=== PATIENT | male | born 1950 | race Caucasian/White ===

== ENCOUNTER 2021-11-30 07:39 | Outpatient (REF) | payer MEDICARE, BC, SELFPAY ==
--- NOTE | ~2021-11-30 | CT_ITS ---
EXAMINATION: CT ABDOMEN AND PELVIS WITHOUT CONTRAST CLINICAL INFORMATION: Renal calculus COMPARISON: None TECHNIQUE: Multidetector volumetric imaging was performed from the superior aspect of the liver through the pubic symphysis. Sagittal and coronal reformatted images were obtained on the technologist's workstation. This CT examination was performed using dose optimization techniques as appropriate, variously including the following: *Automated exposure control *Adjustment of mA and/or kV according to patient size (this includes techniques or standardized protocols for targeted exams where dose is matched to indication/reason for exam; i.e. extremities or head) *Use of iterative reconstruction technique DLP: 470 mGy-cm FINDINGS: Visualized lung bases demonstrate mild lingular and dependent atelectasis. A more nodular opacity within the right middle lobe is also suspected to represent atelectasis. The liver demonstrates normal size, contour and attenuation. There is a small approximately 1.5 cm cyst within the anterior right hepatic lobe. The gallbladder is normal in appearance. The pancreas, spleen and adrenal glands are unremarkable. Symmetrically sized kidneys. There are 4 small nonobstructing calculi of the right kidney, the largest is located within the lower pole and measures approximately 7 mm in size. This stone demonstrates Hounsfield units of approximately 760 and is located approximately 10 cm from the lateral skin surface. Also within the right kidney is a large exophytic cyst which measures approximately 10 cm. No renal calculi are present within the left kidney although there is an 8 mm calculus present within the left ureterovesical junction. There is however no left-sided hydronephrosis and no dilatation of the left ureter. The bladder is decompressed and therefore not accurately evaluated, however, there appears to be mild diffuse bladder wall thickening. There are coarse calcifications present within a normal-sized prostate gland. There is a 2.1 cm cystic structure abutting the posterior bladder wall which possibly represents bladder diverticulum. The stomach is decompressed. Normal caliber loops of small and large bowel. Moderate to severe colonic diverticulosis without CT evidence to suggest active diverticulitis. Normal caliber abdominal aorta which demonstrates mild atherosclerotic disease. No retroperitoneal lymphadenopathy. Moderate to severe degenerative changes of the spine. CT/CT abdomen pelvis wo con IMPRESSION: 1. Subcentimeter nonobstructing right renal calculi. No right-sided hydronephrosis. 2. 8 mm calculus present within the left ureterovesical junction. There is however no left-sided hydronephrosis. No other calculi are noted within the left kidney. 3. There is suspected mild diffuse bladder wall thickening and there is a possible approximately 2 cm diverticulum off the posterior bladder wall. Clinical correlation recommended. This may be further evaluated with dedicated bladder ultrasound. 4. Colonic diverticulosis. 5. Hepatic and right renal cysts. Fleischner guidelines were followed.
== END 2021-11-30 07:40 | disposition home or self-care (01) ==
LOC: HO.CT 07:39
PROVIDERS: PCP Internal Medicine; Visit Provider Physician Assistant
DX: N20.0 Calculus of kidney (principal)
CPT/HCPCS: 74176

== ENCOUNTER 2023-10-31 18:04 | Inpatient (IN) | payer MEDICARE, BC, SELFPAY ==
[2023-10-31] VITALS (9 sets, daily range): BP systolic 110–163; BP diastolic 59–95; PULSE 72–112; RESP 20–30; TEMP 36.8–39.3; O2SAT 88–97; BMI 27.4
--- NOTE | ~2023-10-31 | CT_ITS ---
EXAMINATION: CTA CHEST PE STUDY, CT ABDOMEN AND PELVIS CLINICAL INFORMATION: Shortness of breath. Hypoxia. Tachypnea. RLQ TTP, prior N/V/D COMPARISON: 11/30/2021 CT scan TECHNIQUE: Prior to contrast administration, noncontrast localization images were obtained. After the administration of 85 mL of Omnipaque nonionic IV contrast, contiguous thin slice helical images were obtained through the thorax. Following this the examination was continued through the abdomen and then pelvis. Reformatted MIP images in the coronal and sagittal planes as well as thin slice reformatted images of coronal and sagittal planes were obtained at the acquisition workstation. This CT examination was performed using dose optimization techniques as appropriate, variously including the following: *Automated exposure control *Adjustment of mA and/or kV according to patient size (this includes techniques or standardized protocols for targeted exams where dose is matched to indication/reason for exam; i.e. extremities or head) *Use of iterative reconstruction technique DLP: 858 mGy-cm. FINDINGS: CHEST: The bolus timing on this study was acceptable for visualization of the pulmonary arterial tree. There are no intraluminal pulmonary arterial filling defects present to suggest pulmonary embolism. Linear scarring or atelectasis at the right lung base. No abnormal pulmonary nodules or masses are appreciated. No significant hilar or mediastinal adenopathy. There is no evidence of pleural effusion or pneumothorax. The heart is normal in size. No evidence of ventricular septal bowing or right heart strain. Extensive vascular calcification in the coronary vessels. There is no pericardial effusion or pericardial thickening. ABDOMEN/PELVIS: Liver, Gallbladder and Biliary Tree: The liver is normal in size, shape, and attenuation. Incidental oval shaped 1.7 cm hepatic cyst in segment 4 the liver. No focal hepatic lesion or biliary ductal dilatation is present. The gallbladder is unremarkable with no evidence of radiopaque gallstones, gallbladder wall thickening, or obvious pericholecystic inflammatory changes. Pancreas: Unremarkable. Spleen: Unremarkable. Adrenal Glands: Unremarkable. Kidneys and Ureters: There is a delayed right-sided nephrogram phase with right-sided hydronephrosis and hydroureter extending up to a 0.6 cm calculi at the right ureteropelvic junction. Tiny nonobstructing right-sided and to lesser extent left-sided intrarenal calculi noted as well. Bilateral renal cortical cysts are seen with a dominant 12 cm right upper pole calculi. Bladder: Decompressed with diffuse bladder wall thickening. Cystitis would be difficult to exclude in this setting and correlation with urinalysis would be recommended. There is a small cystic structures seen along the posterior aspect of the bladder abutting the seminal vesicle more likely due to bladder diverticula although seminal vesicle/ejaculatory duct cyst cannot be excluded with this location. Gastrointestinal Tract: Extensive colonic diverticulosis more so in the sigmoid colon. No colonic wall thickening or pericolonic inflammatory change to suggest diverticulitis. Unremarkable appendix. Visualized small bowel also unremarkable Abdominal Wall: No significant hernia is appreciated. Lymphovascular Structures: Vascular calcification within the aorta iliac system Pelvic Viscera: Prostatic calcifications Osseous Structures: Multilevel degenerative changes in the spine and degenerative changes in both hips CT/CT abdomen pelvis w IV con IMPRESSION: 1. No evidence for pulmonary emboli. 2. Right-sided hydronephrosis and hydroureter extending up to a 0.6 cm calculi at the right ureteropelvic junction. There is a delayed right-sided nephrogram phase. 3. Bladder is decompressed with diffuse bladder wall thickening. Cystitis would be difficult to exclude in this setting and correlation with urinalysis would be recommended. 4. There is a small cystic structure seen along the posterior aspect of the bladder abutting the seminal vesicle more likely due to bladder diverticula although seminal vesicle/ejaculatory duct cyst cannot be excluded with this location. VTE: Negative.
--- NOTE | ~2023-10-31 | XR_ITS ---
EXAMINATION: XR CHEST CLINICAL INFORMATION: Hypoxia. COMPARISON: Chest 10/31/2023 TECHNIQUE: Frontal view of the chest was obtained. FINDINGS: The lungs are well-expanded and clear of acute Process. There is minimal linear atelectatic changes in the lingula and right lower lobe.. There is mild elevated right hemidiaphragm. Heart size and pulmonary vascularity is normal. There is moderate spondylosis mid and lower dorsal spine. No aggressive lytic or sclerotic process. XR/XR chest 1V IMPRESSION: 1. No acute cardiopulmonary process seen. Minimal atelectatic changes in the lingula and right middle lobe. 2. Moderate spondylosis mid and lower dorsal spine.
--- NOTE | ~2023-10-31 | FL_ITS ---
EXAMINATION: XR FLUOROSCOPY WITH IMAGES CLINICAL INFORMATION: Cystoscopy, retrograde, stent placement right COMPARISON: None available. TECHNIQUE: Fluoroscopy Supervised By: Dr. Molina. Fluoroscopy Time: 13.8. Cumulative Dose: 5.06 mGy. DAP: Not reported on this machine. Images: 2. FINDINGS: Technical assistance and equipment were provided by the Department of Radiology during intraoperative fluoroscopy. A total of 2 limited fluoroscopic spot images are submitted for archival purposes. A radiologist was not present during the procedure. The images are available for review on PACS. FL/FL guidance in OR IMPRESSION: Technical assistance and equipment provided by the Department of Radiology during procedural fluoroscopy, as above. Please see procedure report for further details.
--- NOTE | ~2023-10-31 | XR_ITS ---
EXAMINATION: XR CHEST 2 VIEW CLINICAL INFORMATION: Cough, shortness of breath COMPARISON: None TECHNIQUE: PA and lateral views of the chest obtained. FINDINGS: Minimal linear atelectasis or scar is evident in the lingula. The right lung is clear. There are no pleural effusions. The cardiomediastinal silhouette is not enlarged. Spondylotic changes are noted in the dorsal spine. The aorta is uncoiled. There are no pleural effusions. The cardiomediastinal silhouette is normal. XR/XR chest 2V IMPRESSION: Minimal linear atelectasis or scar at the left lung base.
--- NOTE | 2023-10-31 18:09 | ED.GENADULT ---
HPI - General Adult General Chief complaint: Upper Respiratory Symptoms Stated complaint: fever 102 /sob/ 5 days Time Seen by Provider: 10/31/23 18:37 Source: patient Mode of arrival: ambulatory Limitations: no limitations History of Present Illness HPI narrative: Patient is a 73-year-old male who presents emergency department for evaluation. He reports 5 days ago, the evening of 10/26/2022 he began experiencing mid lower abdominal pain below the umbilicus that started radiating to the bilateral lower sides with associated nausea vomiting and diarrhea. Reported fever. These symptoms persisted for about 2 days; 10/27-10/28 and were severe. The symptoms resolved. However over the weekend 10/29-10/30 he felt significantly fatigued, and had a hard time getting out of bed. He reports pending no more than 1 hour out of bed each day. Today upon awakening he noticed feeling short of breath. Reports T-max 102.1 degrees at approximately 17:30 tonight, did not take Tylenol at home. He states that the nausea vomiting and abdominal pain have resolved. He denies any headache, dizziness, lightheadedness, neck pain, chest pain, numbness or tingling of the extremities, genitourinary symptoms. He does report a history of UTIs in the past, believes he was last treated for UTI in September 2023. Related Data Home Medications Medication Instructions Recorded Confirmed amlodipine 5 mg tablet 5 mg PO DAILY 10/31/23 10/31/23 atorvastatin 80 mg tablet 80 mg PO BEDTIME 10/31/23 10/31/23 cholecalciferol (vitamin D3) 50 50 mcg PO DAILY 10/31/23 10/31/23 mcg (2,000 unit) tablet coenzyme Q10 300 mg capsule (Co 300 mg PO DAILY 10/31/23 10/31/23 Q-10) magnesium oxide 400 mg PO BEDTIME 10/31/23 10/31/23 potassium citrate 5 mEq (540 mg) 5 meq PO TID 10/31/23 10/31/23 tablet,extended release tamsulosin 0.4 mg capsule 0.4 mg PO BEDTIME 10/31/23 10/31/23 Allergies Allergy/AdvReac Type Severity Reaction Status Date / Time No Known Allergies Allergy Verified 10/31/23 18:11 Review of Systems Review of Systems: Yes all other systems are reviewed and are negative PMFSH Past Medical History Attestation statement: The following information was validated with the patient. Source: old records reviewed Onset Date is defined in the Problem List Problems that require an onset date and time if occurred within 24 hrs of arrival to the ED Aortic Dissection and Rupture; Neurologic impairment; Cardiopulmonary Arrest; Endotracheal Intubation; Insertion or Replacement of Mechanical Circulatory Assist Device Social History Social History Advance Directives: No Advance Directives Information Provided: No Physical Exam ED Vital Signs: Vital Signs - 24 hr 10/31/23 18:06 10/31/23 19:41 10/31/23 20:05 Temperature 99.4 F 102.7 F H 100.4 F Pulse Rate 112 H 92 94 Respiratory Rate 22 H 30 H 20 Blood Pressure 163/87 H 163/85 H 160/95 H Pulse Oximetry 88 L 97 96 Oxygen Delivery Method Room Air Nasal Cannula Nasal Cannula Oxygen Flow Rate 2 2 10/31/23 20:57 10/31/23 21:11 10/31/23 21:13 Temperature 98.3 F 98.6 F 98.6 F Pulse Rate 80 72 Respiratory Rate 20 20 Blood Pressure 127/67 113/59 L Pulse Oximetry 94 94 Oxygen Delivery Method Nasal Cannula Nasal Cannula Oxygen Flow Rate 2 2 10/31/23 22:01 10/31/23 22:42 10/31/23 23:13 Temperature 98.6 F 98.2 F 98.2 F Pulse Rate 72 72 78 Respiratory Rate 20 20 20 Blood Pressure 110/68 124/74 121/76 Pulse Oximetry 95 95 94 Oxygen Delivery Method Nasal Cannula Room Air Nasal Cannula Oxygen Flow Rate 2 2 BMI result Body Mass Index 27.4 Appearance: Alert.?Oriented to person, place and time. No acute distress.?Normal affect. Eyes: Pupils equal, round and reactive to light.? ENT: Pharynx normal.?? Neck: Normal inspection.? Neck supple.?? CVS: Heart sounds normal. Normal heart rate and rhythm.? Pulses normal.?? Respiratory: Increased work of breathing, pausing for breath every few words but is able to speak full sentences. Hypoxic and tachypneic. Lung sounds clear to auscultation bilaterally?? Abdomen: Rounded, semifirm, right lower quadrant tenderness to palpation. No CVA tenderness. Normoactive bowel sounds. No pulsatile mass.?? Skin: Skin warm and dry.? Normal skin color.? Extremities: No lower extremity edema.? No calf ttp? Neuro: Moves all extremities spontaneously. Sensation intact bilaterally. CN II-XII intact. No focal neuro deficits. Ambulates with normal steady gait. Course Course Course Narrative: RME performed by Lanie Anderson PA-C. Patient is a 73 year old assigned male at presenting to the emergency department with a cough, nausea, vomiting, and weakness. Detailed physical exam and review of systems are deferred to the asbestos cloth inspector. Labs, imaging, and swabs ordered. Patient placed back in the waiting room pending room availability and results. Reevaluation(s) Reevaluation #1: CBC reveals a leukocytosis of 12.2 with left shift, very mild normocytic anemia does not meet transfusion criteria. mild hyponatremia with sodium of 132, NEHEMIAH with BUN 21 creatinine 1.63. BNP within normal range not consistent with CHF. High sensitive troponin within normal range, EKG without acute ischemic findings, no chest pain, unlikely ACS. lactic acid within normal range, no severe sepsis. CTA chest and CT AP pending Reevaluation #2: CTA negative for pulmonary embolism. Right hydronephrosis with hydroureter with 0.6 cm calculi at the right UPJ, diffuse bladder wall thickening, urinalysis reveals microscopic hematuria 2+ leukocyte esterase and greater than 50 WBC but no urine bacteria, however with wall thickening on CT concern for cystitis. he reports that he continues to feel short of breath, maintaining O2 saturation at 93% on 2 L via nasal cannula, Spoke with hospitalist, Dr. Goodrich for admission to medicine service. I consulted with Urology, Dr. Velasquez, who agrees to consult on patient case Time: 21:22 Medications Administered Discontinued Medications Generic Name Dose Route Start Last Admin Trade Name Freq PRN Reason Stop Dose Admin Acetaminophen 975 mg 10/31/23 18:53 10/31/23 19:31 Acetaminophen 325 Mg Tablet PO 10/31/23 18:54 975 mg ONCE ONE Administration Sodium Chloride 1,000 mls @ 999 mls/hr 10/31/23 19:00 10/31/23 21:00 Ns IV 10/31/23 20:00 Infused .Q1H1M JONATHAN Infusion Piperacillin Sod/Tazobactam 50 mls @ 100 mls/hr 10/31/23 19:23 10/31/23 21:14 Sod 3.375 gm/ Sodium Chloride IV 10/31/23 19:52 Infused ONCE ONE Infusion Iohexol 100 ml 10/31/23 20:02 10/31/23 20:02 Iohexol 350 Mg/Ml 100 Ml Infus..Btl IV 10/31/23 20:03 85 ml ONCE ONE Administration Tamsulosin HCl 0.4 mg 10/31/23 22:03 10/31/23 22:37 Tamsulosin Hcl 0.4 Mg Capsule PO 10/31/23 22:04 0.4 mg ONCE ONE Administration Medical Decision Making Medical Decision Making [facility] Narrative: 18:40 I assumed care of patient at this time. Patient is a 73-year-old male with past medical history of hypertension, hyperlipidemia, BPH presents emergency department for evaluation of fatigue with shortness of breath as per HPI, with recent gastrointestinal symptoms. During triage she was noted to be hypoxic on room air with O2 saturation 88% and mildly tachypneic. He denies any recent URI symptoms, history of chronic cough or shortness of breath. O2 improved to 96% on 2 L via nasal cannula. He is also noted to be tachycardic. Concern at this time for infection sepsis alert was called. Will obtain CBC to evaluate for leukocytosis/ anemia, CMP and lipase to evaluate for abnormal electrolytes /abnormal renal function/ abnormal hepatic/biliary function, EKG and troponin to evaluate for ischemia/ACS, viral testing, CT angio chest PE protocol, in addition to CT abdomen and pelvis given right lower quadrant tenderness, and Urinalysis. Differential Diagnosis Differential Diagnoses: The differential diagnosis associated with the presentation includes (Viral illness, pneumonia, pulmonary embolism, ACS, gastritis, appendicitis, diverticulitis, obstruction, pyelonephritis, hydronephrosis, ureteral calculi, urinary tract infection) Admission/Observation Consideration of admission/observation: Escalation of care including admission/observation considered (See narrative above and course narrative for further detail) Lab Data [facility] Lab Attestation statement: I reviewed the patient's lab results. (See course narrative for further detail) 10/31/23 19:09 10/31/23 19:09 Labs: Lab Results 10/31/23 10/31/23 10/31/23 Range/Units 19:02 19:09 20:33 WBC 12.2 H (4.8-10.8) X10*3/uL RBC 4.43 L (4.60-5.80) X10*6/uL Hgb 13.9 L (14.0-18.0) g/dl Hct 40.3 L (42.0-52.0) % MCV 91.0 (80.0-98.0) fL MCH 31.4 (27.0-33.0) pg MCHC 34.5 (31.0-36.0) g/dl RDW 16.1 H (11.0-16.0) % Plt Count 223 (160-400) X10*3/uL MPV 9.1 L (9.4-12.4) fL Immature Gran % (Auto) 0.3 (0.0-0.4) % Neut % (Auto) 85.7 H (45-73) % Lymph % (Auto) 4.3 L (20-40) % Swain % (Auto) 9.5 (2-11) % Eos % (Auto) 0.0 (0-4) % Baso % (Auto) 0.2 (0-2) % Lymph # (Auto) 0.5 L (1.2-4.9) X10*3/uL Swain # (Auto) 1.2 (0.1-1.2) X10*3/uL Eos # (Auto) 0.0 (0.0-0.4) X10*3/uL Baso # (Auto) 0.0 (0.0-0.2) X10*3/uL Abs Immat Gran (auto) 0.04 H (0.00-0.03) X10*3/uL Absolute Neuts (auto) 10.4 H (2.0-8.3) x10*3/uL Absolute Nucleated RBC 0.000 (0.0-0.012) X10*3/uL Nucleated RBC % (auto) 0.0 (0.0-0.2) /100WBC Sodium 132 L (135-145) mmol/L Potassium 4.4 (3.3-5.1) mmol/L Chloride 98 (96-108) mmol/L Carbon Dioxide 25 (22-29) mmol/L Anion Gap 13 (12-20) BUN 21 H (9-16) mg/dL Creatinine 1.63 H (0.5-1.4) mg/dL Estim Creat Clear Calc 37.8 Estimated GFR 41 Random Glucose 137 H (60-115) mg/dL Lactic Acid 1.4 (0.5-2.0) mmol/L Calcium 9.2 (8.4-10.2) mg/dL Magnesium 1.9 (1.6-2.6) mg/dL Total Bilirubin 0.9 (0.0-1.0) mg/dL AST 26 (5-37) U/L ALT 18 (0-40) U/L Alkaline Phosphatase 65 (39-117) U/L Total Creatine Kinase 108 (38-174) U/L Troponin I High Sens 5.4 (<3.5-35.0) ng/L B-Natriuretic Peptide 29 (<100) pg/mL Total Protein 7.6 (6.5-8.0) g/dL Albumin 3.7 (3.5-5.0) g/dL Urine Color Dark Yellow Urine Appearance Cloudy Urine pH 5.5 (5.0-9.0) Ur Specific Morton >= 1.030 H (1.005-1.025) Urine Protein 300 (3+) H (Neg-Trace) mg/dL Urine Glucose (UA) Negative (Negative) mg/dL Urine Ketones Trace (Negative) mg/dL Urine Blood Moderate (2+) H (Negative) Urine Nitrite Negative (Negative) Ur Leukocyte Esterase Moderate (2+) H (Negative) Urine RBC 11-20 H (0-2) /HPF Urine WBC >50 H (0-5) /HPF Ur Squamous Epith Cells 0-2 (0-2) /HPF Urine Bacteria None Seen (None Seen) Hyaline Casts 3-5 (0-2) /LPF Influenza Type A (PCR) NEGATIVE (Negative) Influenza Type B (PCR) NEGATIVE (Negative) RSV RNA Qual (PCR) NEGATIVE (Negative) SARS-CoV-2 RNA (RT-PCR) NEGATIVE (Negative) Independent Interpretation I performed an independent interpretation of an: EKG and Plain X-Ray (I person turbid x-ray and agree with radiologist impression.) Interpretation: Rate: 107 Rhythm:? sinus tachycardia Normal P waves.? Normal NICK.?? Normal QRS complex.?? ST T wave :?? no ST elevation, no ST depression [id number] The study has been interpreted contemporaneously by me. Radiology Impression Discussion of test interpretation with radiology: I have reviewed the radiologist's reading. Radiologist Impression: XR/XR chest 2V IMPRESSION: Minimal linear atelectasis or scar at the left lung base. CT/CT angio chest PE protocol IMPRESSION: 1. No evidence for pulmonary emboli. 2. Right-sided hydronephrosis and hydroureter extending up to a 0.6 cm calculi at the right ureteropelvic junction. There is a delayed right-sided nephrogram phase. 3. Bladder is decompressed with diffuse bladder wall thickening. Cystitis would be difficult to exclude in this setting and correlation with urinalysis would be recommended. 4. There is a small cystic structure seen along the posterior aspect of the bladder abutting the seminal vesicle more likely due to bladder diverticula although seminal vesicle/ejaculatory duct cyst cannot be excluded with this location. Independent Historian Clinical information obtained from an independent historian. History obtained from or confirmed by: Spouse (Present who confirms history) Discharge Plan Discharge Clinical Impression: Hydronephrosis with ureteral calculus, NEHEMIAH (acute kidney injury), Acute hypoxemic respiratory failure, UTI (urinary tract infection), Sepsis Patient Disposition: Admitted As Inpatient
--- NOTE | 2023-10-31 18:10 | ECG_ITS ---
Test Reason : SOB Blood Pressure : / mmHG Vent. Rate : 107 BPM Atrial Rate : 107 BPM P-R Int : 146 ms QRS Dur : 084 ms QT Int : 314 ms P-R-T Axes : 043 -69 059 degrees QTc Int : 419 ms Sinus tachycardia Left axis deviation Abnormal ECG No previous ECGs available Referred By: Lanie Anderson Electronically Signed By:DAVID PATEL MD
--- NOTE | 2023-10-31 19:12 | PC.NURSE ---
20g IV Access established in left AC. Labs drawn and sent for analysis. Awaiting results. 2nd blood culture being drawn by Richelle PCT at this time. Placed on monitoring specialist at this time. Sepsis protocol. This RN assuming care of this patient. NAGI Mariano aware.
[2023-10-31 19:15] LABS: Basophils Percent Auto 0.2 % (0-2); Hematocrit 40.3 % (42.0-52.0); Hemoglobin 13.9 g/dl (14.0-18.0); Imm Gran Abs Auto 0.04 X10*3/uL (0.00-0.03); Imm Gran Pct Auto 0.3 % (0.0-0.4); Lymphocytes Absolute Auto 0.5 X10*3/uL (1.2-4.9); Lymphocytes Percent Auto 4.3 % (20-40); MANUAL DIFF FLAG NO; Mean Corpuscular HGB Conc 34.5 g/dl (31.0-36.0); Mean Corpuscular Hemoglobin 31.4 pg (27.0-33.0); Mean Platelet Volume 9.1 fL (9.4-12.4); Monocytes Absolute Auto 1.2 X10*3/uL (0.1-1.2); Monocytes Percent Auto 9.5 % (2-11); Neutrophils Absolute Auto 10.4 x10*3/uL (2.0-8.3); Neutrophils Percent Auto 85.7 % (45-73); Platelet Count 223 X10*3/uL (160-400); Red Blood Count 4.43 X10*6/uL (4.60-5.80); Red Cell Distribution Width 16.1 % (11.0-16.0); White Blood Count 12.2 X10*3/uL (4.8-10.8)
[2023-10-31 19:27] LABS: Lactic Acid 1.4 mmol/L (0.5-2.0)
[2023-10-31] MEDS: Acetaminophen 325 MG TABLET 975 MG PO (19:31)
[2023-10-31 19:32] LABS: Alanine Aminotransferase 18 U/L (0-40); Albumin Level 3.7 g/dL (3.5-5.0); Alkaline Phosphatase 65 U/L (39-117); Anion Gap 13 (12-20); Aspartate Amino Transferase 26 U/L (5-37); Bilirubin Total 0.9 mg/dL (0.0-1.0); Blood Urea Nitrogen 21 mg/dL (9-16); Calcium 9.2 mg/dL (8.4-10.2); Carbon Dioxide 25 mmol/L (22-29); Chloride 98 mmol/L (96-108); Creatinine Clr Calc Pharmacy 37.8; Estimated Glomerular Filt Rate 41; Glucose Random 137 mg/dL (60-115); Magnesium 1.9 mg/dL (1.6-2.6); Potassium 4.4 mmol/L (3.3-5.1); Sodium 132 mmol/L (135-145); Total Protein 7.6 g/dL (6.5-8.0)
[2023-10-31 19:35] LABS: B Type Natriuretic Peptide 29 pg/mL (<100)
[2023-10-31] MEDS: Piperacillin Sodium/Tazobactam 3.375 GM in 0.9 % Sodium Chloride 50 ML IV (19:36)
[2023-10-31] MEDS: 0.9 % Sodium Chloride 1,000 ML 999 ML IV (19:37)
[2023-10-31 19:39] LABS: Troponin-I High Sensitivity 5.4 ng/L (<3.5-35.0)
[2023-10-31 19:51] LABS: Influenza A PCR NEGATIVE (Negative); Influenza B PCR NEGATIVE (Negative); Resp Syncy Virus RNA Qual PCR NEGATIVE (Negative); SARS COV2 PCR INHOUSE NEGATIVE (Negative)
[2023-10-31] MEDS: iohexoL 350 MG/ML 100 ML INFUS..BTL IV (20:02)
[2023-10-31 20:40] LABS: Appearance Urine Cloudy; Color Urine Dark Yellow; Glucose Urine UA Negative (Negative); Leukocyte Esterase Urine Moderate (2+) (Negative); Nitrite Urine Negative (Negative); PH 5.5 (5.0-9.0); Specific Gravity - Urine >= 1.030 (1.005-1.025); UMIC TRIGGER UACC YES; Urine Blood Moderate (2+) (Negative); Urine Ketones Trace mg/dL (Negative); Urine Protein 300 (3+) mg/dL (Neg-Trace)
[2023-10-31 20:52] LABS: Bacteria Urine None Seen (None Seen); Squamous Epithelial Cell Urine 0-2 /HPF (0-2); UACC Culture Trigger YES; WBC Urine >50 /HPF (0-5)
--- NOTE | 2023-10-31 22:03 | PHA.MEDREC ---
Pharmacy Consult ? Medication Reconciliation Pharmacy has completed the medication reconciliation. Patient's read list off patent phone. Patient made corrects to list for medications that have changed. Arminda Weeks, LouannD
--- NOTE | 2023-10-31 22:15 | PC.NURSE ---
assumed care of pt at 2100, pt sts he does not have any pain at this time. Does not feel short of breath, pt on 2L O2 via NC, SpO2 95%, afebrile, no complaints at this time. Calll boyce within reach
[2023-10-31] MEDS: Tamsulosin HCL 0.4 MG CAPSULE PO (22:37)
--- NOTE | 2023-10-31 23:25 | MHC.EDTECH ---
Addendum entered by Jessy Caicedo 10/31/23 23:29: vitals completed and call boyce within reach Original Note: This tech took over care of patient at 2300,hourly rounds and belonging list completed
--- NOTE | 2023-10-31 23:53 | P.HPHOSP_ITS ---
History of Present Illness Date of Service: 10/31/23 Attending physician on admission: Ilia Goodrich Chief Complaint: Abdominal pain, fevers and fatigue x 5 days Patient is a 73 year old pleasant white male with past medical history of recurrent UTI's, nephrolithiasis, hypertension, hyperlipidemia and BPH who presents to the emergency room accompanied by his reporting ongoing infra- umbilical and right flank pain. He started feeling unwell about 4 to 5 days ago with recurrent fevers with the highest recorded temperature being 102.5 F. He also had several episodes of non-bloody diarrhea with associated nausea and vomiting that lasted for 2 days and have now resolved. He has however continued to have intermittent febrile episodes and has now became generally weak to a point where he has been spending most of his day in bed. Today morning, he noticed that he had difficulty breathing and this is what prompted him to seek care. He denies any associated headaches, dizziness, chest pain, dysuria, hematuria or urgency. Initial work up done in the emergency room included a CT angiogram of the chest that did not show any acute abnormality while a CT scan of the abdomen and pelvis showed right sided hydroureteronephrosis due to a 0.6 cm obstructing calculi at the right ureteropelvic junction with associated cystitis. Blood work done was significant for a leukocytosis of 12.2 k/mm3, mild hyponatremia (132) and acuter renal failure with a serum creatinine of 1.63 mg/dL (not sure about his baseline). He received IV Zosyn and oral Flomax following which admission was requested. Review of Systems 2 Review of Systems: Yes all other systems are reviewed and are negative [facility] Functional capacity: independent ambulation Pertinent family history: Reviewed with patient and not pertinent to current admission. Social History Advance Directives: No Advance Directives Information Provided: No Meds Allergies Allergy/AdvReac Type Severity Reaction Status Date / Time No Known Allergies Allergy Verified 10/31/23 18:11 Home Medications Medication Instructions Recorded Confirmed Last Taken Type amlodipine 5 mg tablet 5 mg PO DAILY 10/31/23 10/31/23 10/31/22 History atorvastatin 80 mg tablet 80 mg PO BEDTIME 10/31/23 10/31/23 10/30/22 History cholecalciferol (vitamin D3) 50 50 mcg PO DAILY 01/08/24 01/08/24 01/08/23 History mcg (2,000 unit) tablet coenzyme Q10 300 mg capsule (Co 300 mg PO DAILY 10/31/23 10/31/23 10/31/22 History Q-10) magnesium oxide 400 mg PO BEDTIME 10/31/23 10/31/23 10/30/22 History potassium citrate 5 mEq (540 mg) 5 meq PO TID 10/31/23 10/31/23 10/31/22 History tablet,extended release tamsulosin 0.4 mg capsule 0.4 mg PO BEDTIME 10/31/23 10/31/23 10/30/22 History Physical Exam 2 Vital Signs and Narrative: Vital Signs: Last Vital Signs Temp 98.2 F 10/31/23 23:13 Pulse 78 10/31/23 23:13 Resp 20 10/31/23 23:13 BP 121/76 10/31/23 23:13 Pulse Ox 94 10/31/23 23:13 O2 Del Method Nasal Cannula 10/31/23 23:13 O2 Flow Rate 2 10/31/23 23:13 BMI result Body Mass Index 27.4 General: Well nourished. Awake, alert and oriented x 4. No apparent distress Eyes: No pallor or jaundice. PERRLA, EOMI HENT: Moist oral mucus membranes. No oropharyngeal lesions. Neck: Supple. No cervical adenopathy. No JVD Cardiovascular: Regular rate and rhythm. Normal heart sounds. No murmurs, rubs or gallops. No JVD. No peripheral edema. Respiratory: Normal respiratory effort with no accessory muscle use. CTAB. Gastrointestinal: Abdomen is soft, non-tender, non-distended. NABS. No hepatosplenomegaly Genitourinary system: Positive right CVA tenderness Extremities: No edema. No calf tenderness. Good peripheral pulses Skin: Warm/Dry. No rashes. No mottling. Capillary refill is < 2 seconds Neurological: AAOx4. Intact speech & cognition. Normal gait & balance. CN II - XII grossly intact but not individually tested. No motor or sensory deficits Hematologic: No bleeding. No ecchymosis. No swollen or tender lymph nodes. Psychiatric: Cooperative. Appropriate mood and affect. Results Labs 10/31/23 19:09 10/31/23 19:09 Labs: Laboratory Results - last 24 hr 10/31/23 10/31/23 10/31/23 19:02 19:09 20:33 MCV 91.0 MCH 31.4 MCHC 34.5 RDW 16.1 H Plt Count 223 MPV 9.1 L Immature Gran % (Auto) 0.3 Neut % (Auto) 85.7 H Lymph % (Auto) 4.3 L [place] % (Auto) 9.5 Eos % (Auto) 0.0 Baso % (Auto) 0.2 Lymph # (Auto) 0.5 L [place] # (Auto) 1.2 Eos # (Auto) 0.0 Baso # (Auto) 0.0 Abs Immat Gran (auto) 0.04 H Absolute Neuts (auto) 10.4 H Absolute Nucleated RBC 0.000 Nucleated RBC % (auto) 0.0 Anion Gap 13 Estim Creat Clear Calc 37.8 Estimated GFR 41 Random Glucose 137 H Lactic Acid 1.4 Calcium 9.2 Magnesium 1.9 Total Bilirubin 0.9 AST 26 ALT 18 Alkaline Phosphatase 65 Total Creatine Kinase 108 B-Natriuretic Peptide 29 Total Protein 7.6 Albumin 3.7 Urine Color Dark Yellow Urine Appearance Cloudy Urine pH 5.5 Ur Specific [place] >= 1.030 H Urine Protein 300 (3+) H Urine Glucose (UA) Negative Urine Ketones Trace Urine Blood Moderate (2+) H Urine Nitrite Negative Ur Leukocyte Esterase Moderate (2+) H Urine RBC 11-20 H Urine WBC >50 H Ur Squamous Epith Cells 0-2 Urine Bacteria None Seen Hyaline Casts 3-5 Influenza Type A (PCR) NEGATIVE Influenza Type B (PCR) NEGATIVE RSV RNA Qual (PCR) NEGATIVE SARS-CoV-2 RNA (RT-PCR) NEGATIVE ECG ECG interpretation date: 11/01/23 ECG interpretation time: 00:46 Interpretation: Sinus tachycardia at 107 bpm. LAD. No acute ischemic changes Imaging Radiologist's Impressions: Impressions Chest X-Ray 10/31/23 18:21 IMPRESSION: Minimal linear atelectasis or scar at the left lung base. Abdomen/Pelvis CT 10/31/23 20:19 1. No evidence for pulmonary emboli. 2. Right-sided hydronephrosis and hydroureter extending up to a 0.6 cm calculi at the right ureteropelvic junction. There is a delayed right-sided nephrogram phase. 3. Bladder is decompressed with diffuse bladder wall thickening. Cystitis would be difficult to exclude in this setting and correlation with urinalysis would be recommended. 4. There is a small cystic structure seen along the posterior aspect of the bladder abutting the seminal vesicle more likely due to bladder diverticula although seminal vesicle/ejaculatory duct cyst cannot be excluded with this location. VTE: Negative. Assessment and Plan (1) Sepsis: Qualifiers: Acute renal failure type: unspecified Sepsis acute organ dysfunction status: with acute organ dysfunction Sepsis type: sepsis due to unspecified organism Severe sepsis acute organ dysfunction type: acute renal failure S evere sepsis shock status: without septic shock Qualified Code(s): A41.9 - Sepsis, unspecified organism; R65.20 - Severe sepsis without septic shock; N17.9 - Acute kidney failure, unspecified Status: Acute (2) Hydronephrosis with ureteral calculus: Status: Acute (3) UTI (urinary tract infection): Qualifiers: Hematuria presence: without hematuria Urinary tract infection type: a cute cystitis Qualified Code(s): N30.00 - Acute cystitis without hematuria Status: Acute (4) NEHEMIAH (acute kidney injury): Status: Acute (5) Hypoxemia: Status: Acute Plan Patient is a 73 year old pleasant white male with past medical history of recurrent UTI's, nephrolithiasis, hypertension, hyperlipidemia and BPH who is ehre with 1. Sepsis - due to UTI - not in shock and Lactic acid not elevated .dvt - admit for IV antibiotics (started on Ceftriaxone) - follow up on urine & blood cultures - He santiago normal lactic acid and BP so no need for IV fluid t this time. 2. Right sided hydronephrosis and hydroureter - secondary to an obstructing 0.6 cm stone at the right ureteropelvic junction. - will need stone expulsion or extraction given presence of UTI - consult Urology (Dr. Velasquez is aware) 3. Acute UTI / Cystitis - he has a h/o recurrent TI - treat with Zosyn 4. Acute renal failure - noted with slightly elevated Serum creatinine at 1.63 - am not sure about his baseline since he has not done any lab work - rehydrate and recheck in the morning 5. Hypertension - BP control is fair - resume Amlodipine 6. Hyperlipidemia - resume atorvastatin DVT: SC Lovenox CODE STATUS: Full code Admission for at least 2 midnights for management of UTI and Sepsis and further management of right obstructing ureteral calculi. Total time managing care of this patient today: 75 minutes. Quality Stroke Does the patient have a stroke diagnosis?: No VTE Prior VTE?: No VTE Risk Level:: Medical - moderate - high VTE Device Contraindication: N/A - Device Ordered VTE Drug Contraindication: N/A - Med Ordered
[2023-11-01] VITALS (22 sets, daily range): BP systolic 106–154; BP diastolic 34–91; PULSE 75–135; RESP 12–46; TEMP 36.6–40; O2SAT 91–97
--- NOTE | 2023-11-01 01:06 | MHC.EDTECH ---
Patient rang the call boyce and stated he was shaky,patient felt hot to the touch, patient has a rectal temp of 102.3 RN was made aware. Patient urinated 250MLS in urinal,patient had smears of stool, sydni-care giving and patient repositioned. Call boyce within reach.
[2023-11-01] MEDS: oxyCODONE HCl Immed Release 5 MG TABLET PO (01:11)
[2023-11-01] MEDS: 0.9 % Sodium Chloride Flush 3 ML SYRINGE IVFLUSH ×2 (01:11→10:26)
[2023-11-01] MEDS: Acetaminophen 325 MG TABLET 650 MG PO ×3 (01:12→13:15)
[2023-11-01] MEDS: Melatonin 3 MG TABLET 6 MG PO (01:12)
[2023-11-01] MEDS: Dextrose 5 % and 0.9 % NaCl 1,000 ML 125 ML IVCONT ×3 (01:12→19:36)
--- NOTE | 2023-11-01 01:16 | PC.NURSE ---
Pt calling nursing into room, states he is feeling unwell and has tremors. Rectal temp elevated 102.3 Pt medicated with Tylenol, Oxycodone for 5/10 and Melatonin to sleep. Pt incontinent of stool, provided sydni care, assisted into changing out of home clothes into hospital attire. Pt resting in bed at this time, continue to monitor.
--- NOTE | 2023-11-01 02:12 | MHC.EDTECH ---
Hourly rounds and vitals completed, patient's temp is 103.2 Rectally RN Dina made aware.
--- NOTE | 2023-11-01 02:13 | PC.NURSE ---
Addendum entered by Dina Morrison 11/01/23 02:15: Plan to cool patient with ice packs and recheck temp in 1 hour per hospitalist. Original Note: Repeat rectal temp remains elevated @ 103.2, recently medicated with Tylenol, hospitalist notified. Awaiting orders.
--- NOTE | 2023-11-01 03:19 | MHC.EDTECH ---
Addendum entered by Jessy Caicedo 11/01/23 03:34: @ 0230 ICE applied to patients groin and neck Original Note: Hourly rounds and vitals completed patient's temp is 102.3 rectally, RN aware, patient was giving a cup of ice water,call boyce in reach
[2023-11-01] MEDS: Piperacillin Sodium/Tazobactam 2.25 GM in 0.9 % Sodium Chloride 50 ML IV ×3 (03:28→21:36)
--- NOTE | 2023-11-01 04:09 | MHC.EDTECH ---
Ice packs removed,patient was cleaned linen was changed and sydni-care giving. Hourly rounds and vitals completed, rectal temp is 101.4 RN made aware, Patient was giving a can of nigel lashae. Call boyce in reach
[2023-11-01] MEDS: ondansetron HCL 4 MG/2 ML VIAL IVPUSH (04:27)
[2023-11-01] MEDS: Morphine Sulfate 4 MG/ML CARTRIDGE 2 MG IVPUSH (04:38)
--- NOTE | 2023-11-01 04:44 | PC.NURSE ---
Addendum entered by Dina Morrison 11/01/23 04:48: Pt reports relief of nausea, states pain has decreased to 2/10 after receiving Morphine. Original Note: Pt reports having a panic attack, wakes feeling unwell, tremerous, SOB, tachycardic @ 140 and tachypneic @ 40/min. Hospitalist notified and at bedside for eval. Pt medicated for pain, ice packs reapplied to head/neck/groin. Plan to move to main ED and apply cooling blanket.
--- NOTE | 2023-11-01 04:59 | PC.NURSE ---
Pt moved to the main ED into room 9, report given to [facility]. Plan for cooling blanket.
--- NOTE | 2023-11-01 05:12 | PC.NURSE ---
Rectal probe inserted to monitor temp, temp 104. Cooling blanket applied.
--- NOTE | 2023-11-01 05:27 | PC.NURSE ---
care assumed of patient at this time. pt to ED RM9 from [facility] [place]. pt placed on cooling blanket. T103.8 at this time. pt denies any pain/ nausea at this moment. will continue to monitor.
[2023-11-01 06:37] LABS: Basophils Percent Auto 0.1 % (0-2); Hematocrit 35.7 % (42.0-52.0); Imm Gran Pct Auto 0.7 % (0.0-0.4); Lymphocytes Absolute Auto 0.5 X10*3/uL (1.2-4.9); Lymphocytes Percent Auto 3.4 % (20-40); MANUAL DIFF FLAG SCAN; Mean Corpuscular HGB Conc 33.6 g/dl (31.0-36.0); Mean Corpuscular Hemoglobin 31.4 pg (27.0-33.0); Mean Corpuscular Volume 93.5 fL (80.0-98.0); Mean Platelet Volume 9.8 fL (9.4-12.4); Monocytes Absolute Auto 0.4 X10*3/uL (0.1-1.2); Monocytes Percent Auto 3.1 % (2-11); Neutrophils Absolute Auto 12.9 x10*3/uL (2.0-8.3); Neutrophils Percent Auto 92.7 % (45-73); Platelet Count 212 X10*3/uL (160-400); Red Blood Count 3.82 X10*6/uL (4.60-5.80); Red Cell Distribution Width 16.2 % (11.0-16.0); SCAN SMEAR FLAG 1; White Blood Count 13.9 X10*3/uL (4.8-10.8)
[2023-11-01 06:43] LABS: Anion Gap 14 (12-20); Blood Urea Nitrogen 20 mg/dL (9-16); Calcium 8.4 mg/dL (8.4-10.2); Carbon Dioxide 24 mmol/L (22-29); Chloride 102 mmol/L (96-108); Creatinine Clr Calc Pharmacy 39.5; Estimated Glomerular Filt Rate 44; Glucose Random 144 mg/dL (60-115); Potassium 4.5 mmol/L (3.3-5.1); Sodium 135 mmol/L (135-145)
[2023-11-01 07:06] LABS: SLIDE REVIEW VERIFIED
[2023-11-01] MEDS: amLODIPine Besylate 5 MG TABLET PO (07:24)
[2023-11-01] MEDS: Docusate Sodium 100 MG CAPSULE PO ×2 (07:25→21:36)
[2023-11-01] MEDS: Cholecalciferol (Vitamin D3) 25 MCG TABLET 50 MCG PO (07:25)
--- NOTE | 2023-11-01 08:43 | PC.NURSE ---
Dr Walker at bedside at this time
--- NOTE | 2023-11-01 09:13 | PC.NURSE ---
Pt is a&o x4, reporting no pain, second point of access established. cooling blanket in place, pt using urinal at bedside and able to make needs known.
--- NOTE | 2023-11-01 09:42 | PC.NURSE ---
Cooling blanket removed as temp 99.1 at this time
--- NOTE | 2023-11-01 09:42 | PM.UROCN ---
History of Present Illness Consult details Consult date: 11/01/23 Narrative: CC: right proximal ureteric stone 73-year-old male Prior history of recurrent UTIs, nephrolithiasis and BPH Presented to emergency room with right flank pain severity 8/10, no relieving factors. Ongoing for 4-5 days. Intermittent fever. Highest temperature poor high 1-2.5 Denies dysuria, hematuria or urgency CT scan - Right-sided hydronephrosis and hydroureter extending up to a 0.6 cm calculi at the right ureteropelvic junction Laboratory showed creatinine 1.6 consistent with mild NEHEMIAH, WBC 13.9 differential not performed Urine with moderate blood, leukocytosis Culture pending Has been given broad-spectrum antibiotics Plan for cystoscopy, right retrograde, right stent placement Procedure discussed with patient and Review of Systems Constitutional: Constitutional: Reports as per HPI and Reports no additional constitutional complaints Cardiovascular: Cardiovascular: Reports as per HPI and Reports no additional cardiovascular complaints Respiratory: Respiratory: Reports as per HPI and Reports no additional respiratory complaints Gastrointestinal: Gastrointestinal: Reports as per HPI and Reports no additional gastrointestinal complaints Genitourinary: Genitourinary: Reports as per HPI Musculoskeletal: Musculoskeletal: Reports no additional musculoskeletal complaints and Reports as per HPI Neurologic: Reports system reviewed and no additional complaints, except as documented and Reports as per HPI [facility] Social History Social History Patient Tobacco Use Status: Tobacco use Unknown Advance Directives: No Advance Directives Information Provided: No Meds Allergies Allergy/AdvReac Type Severity Reaction Status Date / Time No Known Allergies Allergy Verified 10/31/23 18:11 Active Medications: Current Medications Acetaminophen (Acetaminophen 325 Mg Tablet) 650 mg PO Q6H PRN PRN Reason: Pain, Mild (Pain Scale 1-3) Last Admin: 11/01/23 07:24 Dose: 650 mg Al Hydroxide/Mg Hydroxide (Magnesium Hydrox/Alum Hydrox 30 Ml Oral.Susp) 30 ml PO Q4H PRN PRN Reason: Heartburn/Nausea Amlodipine Besylate (Amlodipine Besylate 5 Mg Tablet) 5 mg PO DAILY [facility]; Protocol Last Admin: 11/01/23 07:24 Dose: 5 mg Atorvastatin Calcium (Atorvastatin Calcium 80 Mg Tablet) 80 mg PO BEDTIME [facility] Docusate Sodium (Docusate Sodium 100 Mg Capsule) 100 mg PO BID [facility] Last Admin: 11/01/23 07:25 Dose: 100 mg Enoxaparin Sodium (Enoxaparin Sodium 40 Mg/0.4 Ml Syringe) 40 mg SUBCUT DAILY [facility] Dextrose/Sodium Chloride (D5ns) 1,000 mls @ 125 mls/hr IVCONT .Q8H [facility] Last Admin: 11/01/23 09:05 Dose: 125 mls/hr Piperacillin Sod/Tazobactam (Sod 2.25 gm/ Sodium Chloride) 50 mls @ 100 mls/hr IV Q6H [facility] Last Admin: 11/01/23 09:04 Dose: 100 mls/hr Magnesium Oxide (Magnesium Oxide 400 Mg Tablet) 400 mg PO BEDTIME [facility] Melatonin (Melatonin 3 Mg Tablet) 6 mg PO BEDTIME PRN PRN Reason: Insomnia Last Admin: 11/01/23 01:12 Dose: 6 mg Morphine Sulfate (Morphine Sulfate 4 Mg/Ml Cartridge) 2 mg IVPUSH Q6H PRN; Protocol PRN Reason: Pain, Severe (Pain Scale 7-10) Last Admin: 11/01/23 04:38 Dose: 2 mg Ondansetron HCl (Ondansetron Hcl 4 Mg/2 Ml Vial) 4 mg IVPUSH Q8H PRN PRN Reason: Nausea and Vomiting Last Admin: 11/01/23 04:27 Dose: 4 mg Oxycodone HCl (Oxycodone Hcl Immed Release 5 Mg Tablet) 5 mg PO Q6H PRN PRN Reason: Pain, Moderate(Pain Scale 4-6) Last Admin: 11/01/23 01:11 Dose: 5 mg Sodium Chloride (0.9 % Sodium Chloride Flush 3 Ml Syringe) 3 ml IVFLUSH QSHIFT [facility] Last Admin: 11/01/23 01:11 Dose: 3 ml Tamsulosin HCl (Tamsulosin Hcl 0.4 Mg Capsule) 0.4 mg PO BEDTIME [facility] Vitamin D (Cholecalciferol (Vitamin D3) 25 Mcg Tablet) 50 mcg PO DAILY [facility] Last Admin: 11/01/23 07:25 Dose: 50 mcg Home Medications Medication Instructions Recorded Confirmed Last Taken Type amlodipine 5 mg tablet 5 mg PO DAILY 10/31/23 10/31/23 10/31/22 History atorvastatin 80 mg tablet 80 mg PO BEDTIME 10/31/23 10/31/23 10/30/22 History cholecalciferol (vitamin D3) 50 50 mcg PO DAILY 10/31/23 10/31/23 10/31/22 History mcg (2,000 unit) tablet coenzyme Q10 300 mg capsule (Co 300 mg PO DAILY 10/31/23 10/31/23 10/31/22 History Q-10) magnesium oxide 400 mg PO BEDTIME 10/31/23 10/31/23 10/30/22 History potassium citrate 5 mEq (540 mg) 5 meq PO TID 10/31/23 10/31/23 10/31/22 History tablet,extended release tamsulosin 0.4 mg capsule 0.4 mg PO BEDTIME 10/31/23 10/31/23 10/30/22 History Physical Exam Vital Signs: Vital Signs: Last Vital Signs Temp 100.1 F 11/01/23 09:01 Pulse 80 11/01/23 09:01 Resp 16 11/01/23 09:01 BP 106/65 11/01/23 09:01 Pulse Ox 93 11/01/23 09:01 O2 Del Method Nasal Cannula 11/01/23 09:01 O2 Flow Rate 3 11/01/23 09:01 BMI result Body Mass Index 27.4 Const: General: cooperative, healthy appearing, comfortable and no acute distress Orientation/consciousness: patient oriented x3 HEENT: Face and sinus: Yes normal facial exam Mouth: moist mucous membranes Neck: Neck: Yes normal visual inspection, Yes full ROM and Yes trachea midline Chest: Chest palpation & inspection: normal inspection of the chest Resp: Effort & Inspection: normal respiratory effort, able to speak in complete sentences and no respiratory distress GI: Inspection: Yes normal to inspection Back/Spine/Pelvis: Cervical Spine: normal cervical lordosis Thoracic/Lumbar Spine: thoracic and lumbar spine normal to inspection Skin: General skin exam: no rashes or lesions noted Neuro: General: patient oriented x3, tone normal and moves all extremities Extrem: General: Yes normal to inspection and Yes capillary refill normal Results Labs 11/01/23 05:27 11/01/23 05:27 Labs: Abnormal lab results 10/31/23 10/31/23 11/01/23 Range/Units 19:09 20:33 05:27 WBC 12.2 H 13.9 H (4.8-10.8) X10*3/uL RBC 4.43 L 3.82 L (4.60-5.80) X10*6/uL Hgb 13.9 L 12.0 L (14.0-18.0) g/dl Hct 40.3 L 35.7 L (42.0-52.0) % RDW 16.1 H 16.2 H (11.0-16.0) % MPV 9.1 L (9.4-12.4) fL Immature Gran % (Auto) 0.7 H (0.0-0.4) % Neut % (Auto) 85.7 H 92.7 H (45-73) % Lymph % (Auto) 4.3 L 3.4 L (20-40) % Lymph # (Auto) 0.5 L 0.5 L (1.2-4.9) X10*3/uL Abs Immat Gran (auto) 0.04 H 0.10 H (0.00-0.03) X10*3/uL Absolute Neuts (auto) 10.4 H 12.9 H (2.0-8.3) x10*3/uL Sodium 132 L (135-145) mmol/L BUN 21 H 20 H (9-16) mg/dL Creatinine 1.63 H 1.56 H (0.5-1.4) mg/dL Random Glucose 137 H 144 H (60-115) mg/dL Ur Specific [place] >= 1.030 H (1.005-1.025) Urine Protein 300 (3+) H (Neg-Trace) mg/dL Urine Blood Moderate (2+) H (Negative) Ur Leukocyte Esterase Moderate (2+) H (Negative) Urine RBC 11-20 H (0-2) /HPF Urine WBC >50 H (0-5) /HPF Short CBC 10/31/23 11/01/23 Range/Units 19:09 05:27 WBC 12.2 H 13.9 H (4.8-10.8) X10*3/uL Hgb 13.9 L 12.0 L (14.0-18.0) g/dl Hct 40.3 L 35.7 L (42.0-52.0) % Plt Count 223 212 (160-400) X10*3/uL BMP 10/31/23 11/01/23 19:09 05:27 Sodium 132 L 135 Potassium 4.4 4.5 Chloride 98 102 Carbon Dioxide 25 24 BUN 21 H 20 H Creatinine 1.63 H 1.56 H Calcium 9.2 8.4 D Cardiac Enzymes 10/31/23 Range/Units 19:09 Total Creatine Kinase 108 (38-174) U/L Liver Function 10/31/23 Range/Units 19:09 Total Bilirubin 0.9 (0.0-1.0) mg/dL AST 26 (5-37) U/L ALT 18 (0-40) U/L Alkaline Phosphatase 65 (39-117) U/L Albumin 3.7 (3.5-5.0) g/dL Urine 10/31/23 Range/Units 20:33 Urine Color Dark Yellow Urine Appearance Cloudy Urine pH 5.5 (5.0-9.0) Ur Specific [place] >= 1.030 H (1.005-1.025) Urine Protein 300 (3+) H (Neg-Trace) mg/dL Urine Glucose (UA) Negative (Negative) mg/dL All other labs normal. Assessment and Plan (1) NEHEMIAH (acute kidney injury): Status: Acute (2) Hydronephrosis with ureteral calculus: Status: Acute Plan Risks, benefits and alternatives to therapy were discussed. These include but are not limited to infection, bleeding, damage to local organs and tissues, need for further interventions. Anesthetic risks regarding cardiac arrhythmia, blood clots, and potential mortality were discussed. The patient understands the typical recovery time and the outpatient nature of the procedure. After consideration of these risks the patient gives full informed consent and they wish to move ahead with the procedure. Cystoscopy, right retrograde, right stent placement Procedures Date of Service Date of Service: 11/01/23
--- NOTE | 2023-11-01 12:31 | MHC.CM.PN ---
Met with patient and sig other, Brianna, in regards to discharge planning. Patient lives with Brianna, ambulates independently and and had no services prior to coming to the hospital Patient and Brianna do not feel services will be necessary at d/c. PCP verified. Copy of HCP obtained from [facility]. IMM explained and signed. Brianna will transport patient home when medically stable. Continue to monitor for d/c needs.
--- NOTE | 2023-11-01 13:00 | PC.NURSE ---
Report given to short stay RN kermit.
--- NOTE | 2023-11-01 14:04 | P.PNIM_ITS ---
Subjective Subjective Date of Service: 11/01/23 Interval History: sepsis sec to uti Review of Systems fevers has dysuria Physical Exam 2 Vital Signs: Vital Signs: Last Vital Signs Temp 100.3 F 11/01/23 13:12 Pulse 84 11/01/23 13:12 Resp 24 H 11/01/23 13:12 BP 121/34 L 11/01/23 13:12 Pulse Ox 94 11/01/23 13:12 O2 Del Method Nasal Cannula 11/01/23 13:12 O2 Flow Rate 2 11/01/23 13:12 BMI result Body Mass Index 27.4 Appearance: Alert.? Oriented X3. cvs: rrr, [id number] . res: clear to auscultation ,no rhonchii or wheezing abd: no rebound or guarding ,nt, bs present. right cva tenderness ext pulses present , no cyanosis . neuro: axo3 , nonfocal. Objective Data Active Medications Acetaminophen (Acetaminophen 325 Mg Tablet) 650 mg PO Q6H PRN PRN Reason: Pain, Mild (Pain Scale 1-3) Last Admin: 11/01/23 13:15 Dose: 650 mg Documented By: LEÓN Al Hydroxide/Mg Hydroxide (Magnesium Hydrox/Alum Hydrox 30 Ml Oral.Susp) 30 ml PO Q4H PRN PRN Reason: Heartburn/Nausea Amlodipine Besylate (Amlodipine Besylate 5 Mg Tablet) 5 mg PO DAILY [facility]; Protocol Last Admin: 11/01/23 07:24 Dose: 5 mg Documented By: LEÓN Atorvastatin Calcium (Atorvastatin Calcium 80 Mg Tablet) 80 mg PO BEDTIME [facility] Docusate Sodium (Docusate Sodium 100 Mg Capsule) 100 mg PO BID [facility] Last Admin: 11/01/23 07:25 Dose: 100 mg Documented By: LEÓN Enoxaparin Sodium (Enoxaparin Sodium 40 Mg/0.4 Ml Syringe) 40 mg SUBCUT DAILY [facility] Last Admin: 11/01/23 11:16 Dose: Not Given Documented By: KAITLYN Non-Admin Reason: Physician Held Med Dextrose/Sodium Chloride (D5ns) 1,000 mls @ 125 mls/hr IVCONT .Q8H [facility] Last Admin: 11/01/23 09:05 Dose: 125 mls/hr Documented By: LEÓN Piperacillin Sod/Tazobactam (Sod 2.25 gm/ Sodium Chloride) 50 mls @ 100 mls/hr IV Q6H [facility] Last Infusion: 11/01/23 10:26 Dose: Infused Documented By: KAITLYN Magnesium Oxide (Magnesium Oxide 400 Mg Tablet) 400 mg PO BEDTIME [facility]ATH[facility] Melatonin (Melatonin 3 Mg Tablet) 6 mg PO BEDTIME PRN PRN Reason: Insomnia Last Admin: 11/01/23 01:12 Dose: 6 mg Documented By: AMANDA Morphine Sulfate (Morphine Sulfate 4 Mg/Ml Cartridge) 2 mg IVPUSH Q6H PRN; Protocol PRN Reason: Pain, Severe (Pain Scale 7-10) Last Admin: 11/01/23 04:38 Dose: 2 mg Documented By: AMANDA Ondansetron HCl (Ondansetron Hcl 4 Mg/2 Ml Vial) 4 mg IVPUSH Q8H PRN PRN Reason: Nausea and Vomiting Last Admin: 11/01/23 04:27 Dose: 4 mg Documented By: CLEMENT Oxycodone HCl (Oxycodone Hcl Immed Release 5 Mg Tablet) 5 mg PO Q6H PRN PRN Reason: Pain, Moderate(Pain Scale 4-6) Last Admin: 11/01/23 01:11 Dose: 5 mg Documented By: AMANDA Sodium Chloride (0.9 % Sodium Chloride Flush 3 Ml Syringe) [facility] Last Admin: 11/01/23 10:26 Dose: 3 ml Documented By: KAITLYN Tamsulosin HCl (Tamsulosin Hcl 0.4 Mg Capsule) 0.4 mg PO BEDTIME [facility] Vitamin D (Cholecalciferol (Vitamin D3) 25 Mcg Tablet) 50 mcg PO DAILY [facility] Last Admin: 11/01/23 07:25 Dose: 50 mcg Documented By: LEÓN Labs 11/01/23 05:27 11/01/23 05:27 Labs: Laboratory Results - last 24 hr 10/31/23 10/31/23 10/31/23 19:02 19:09 20:33 MCV 91.0 MCH 31.4 MCHC 34.5 RDW 16.1 H Plt Count 223 MPV 9.1 L Immature Gran % (Auto) 0.3 Neut % (Auto) 85.7 H Lymph % (Auto) 4.3 L [place] % (Auto) 9.5 Eos % (Auto) 0.0 Baso % (Auto) 0.2 Lymph # (Auto) 0.5 L [place] # (Auto) 1.2 Eos # (Auto) 0.0 Baso # (Auto) 0.0 Abs Immat Gran (auto) 0.04 H Absolute Neuts (auto) 10.4 H Absolute Nucleated RBC 0.000 Nucleated RBC % (auto) 0.0 Smear Tech's Comments Anion Gap 13 Estim Creat Clear Calc 37.8 Estimated GFR 41 Random Glucose 137 H Lactic Acid 1.4 Calcium 9.2 Magnesium 1.9 Total Bilirubin 0.9 AST 26 ALT 18 Alkaline Phosphatase 65 Total Creatine Kinase 108 B-Natriuretic Peptide 29 Total Protein 7.6 Albumin 3.7 Urine Color Dark Yellow Urine Appearance Cloudy Urine pH 5.5 Ur Specific [place] >= 1.030 H Urine Protein 300 (3+) H Urine Glucose (UA) Negative Urine Ketones Trace Urine Blood Moderate (2+) H Urine Nitrite Negative Ur Leukocyte Esterase Moderate (2+) H Urine RBC 11-20 H Urine WBC >50 H Ur Squamous Epith Cells 0-2 Urine Bacteria None Seen Hyaline Casts 3-5 Influenza Type A (PCR) NEGATIVE Influenza Type B (PCR) NEGATIVE RSV RNA Qual (PCR) NEGATIVE SARS-CoV-2 RNA (RT-PCR) NEGATIVE 11/01/23 05:27 MCV 93.5 MCH 31.4 MCHC 33.6 RDW 16.2 H Plt Count 212 MPV 9.8 Immature Gran % (Auto) 0.7 H Neut % (Auto) 92.7 H Lymph % (Auto) 3.4 L [place] % (Auto) 3.1 Eos % (Auto) 0.0 Baso % (Auto) 0.1 Lymph # (Auto) 0.5 L [place] # (Auto) 0.4 Eos # (Auto) 0.0 Baso # (Auto) 0.0 Abs Immat Gran (auto) 0.10 H Absolute Neuts (auto) 12.9 H Absolute Nucleated RBC 0.000 Nucleated RBC % (auto) 0.0 Smear Tech's Comments VERIFIED Anion Gap 14 Estim Creat Clear Calc 39.5 Estimated GFR 44 Random Glucose 144 H Lactic Acid Calcium 8.4 D Magnesium Total Bilirubin AST ALT Alkaline Phosphatase Total Creatine Kinase B-Natriuretic Peptide Total Protein Albumin Urine Color Urine Appearance Urine pH Ur Specific [place] Urine Protein Urine Glucose (UA) Urine Ketones Urine Blood Urine Nitrite Ur Leukocyte Esterase Urine RBC Urine WBC Ur Squamous Epith Cells Urine Bacteria Hyaline Casts Influenza Type A (PCR) Influenza Type B (PCR) RSV RNA Qual (PCR) SARS-CoV-2 RNA (RT-PCR) Microbiology Microbiology Results: Microbiology 10/31/23 20:52 Urine Culture - Preliminary Urine clean catch - Urine sorto top No growth to date. Assessment and Plan (1) Sepsis: Status: Acute (2) UTI (urinary tract infection): Status: Acute Plan 73 year old pleasant white male with past medical history of recurrent UTI's, nephrolithiasis, hypertension, hyperlipidemia and BPH who is ehre with Sepsis- due to UTI abd [id number] hydronephrosis and hydroureter extending up to a 0.6 cm calculi at the right ureteropelvic junction. There is a delayed right-sided nephrogram phase. Bladder is decompressed with diffuse bladder wall thickening. Cystitis would be difficult to exclude in this setting and correlation with urinalysis would be recommended. not in shock and Lactic acid not elevated blood cultures -gram neg bacteremia follow up on urine & blood cultures,treat with Zosyn Right sided hydronephrosis and hydroureter secondary to an obstructing 0.6 cm stone at the right ureteropelvic junction. will need stone expulsion or extraction given presence of UTI consult Urology (Dr. Velasquez is aware) Acute renal failure- noted with slightly elevated Serum creatinine at 1.63 ,baseline unclear rehydrate and recheck in the morning Hypertension- BP control is fair continue Amlodipine Hyperlipidemia-continue atorvastatin DVT: SC Lovenox ongoing hospitlisation need :sepsis ,bactermia with UTI and Sepsis and further management of right obstructing ureteral calculi,elida-need hydration and iv antibiotics as well as urology expert consultation. Quality Stroke Does the patient have a stroke diagnosis?: No VTE Prior VTE?: No VTE Risk Level:: Medical - moderate - high VTE Device Contraindication: N/A - Device Ordered VTE Drug Contraindication: N/A - Med Ordered
--- NOTE | 2023-11-01 15:00 | PC.NURSE ---
dr. garcia at bedside to assess patient 02 sats (90-94) 2L via NC. reviewed lung sounds, x-ray and ct results. report given to kecia huerta rn aware of 3 spots on preop record that need to be completed and signed.
--- NOTE | 2023-11-01 15:04 | HO.ANESPROP2 ---
[facility] Active Problems Active Problems: All Active Problems (Updated 11/01/23 @ 01:15 by Ilia Goodrich MD) Hypoxemia (Acute) Sepsis (Acute) UTI (urinary tract infection) (Acute) Acute hypoxemic respiratory failure (Acute) NEHEMIAH (acute kidney injury) (Acute) Hydronephrosis with ureteral calculus (Acute) Past Medical History Functional capacity: independent ambulation Family History Family history of problems with anesthesia: No Surgical History History of Problems with Anesthesia: No Social History Social History Patient Tobacco Use Status: Former Tobacco user Advance Directives Date on File: 11/01/23 service: No Meds Allergies Allergy/AdvReac Type Severity Reaction Status Date / Time No Known Allergies Allergy Verified 10/31/23 18:11 Active Medications: Current Medications Acetaminophen (Acetaminophen 325 Mg Tablet) 650 mg PO Q6H PRN PRN Reason: Pain, Mild (Pain Scale 1-3) Last Admin: 11/01/23 13:15 Dose: 650 mg Al Hydroxide/Mg Hydroxide (Magnesium Hydrox/Alum Hydrox 30 Ml Oral.Susp) 30 ml PO Q4H PRN PRN Reason: Heartburn/Nausea Amlodipine Besylate (Amlodipine Besylate 5 Mg Tablet) 5 mg PO DAILY [facility]; Protocol Last Admin: 11/01/23 07:24 Dose: 5 mg Atorvastatin Calcium (Atorvastatin Calcium 80 Mg Tablet) 80 mg PO BEDTIME [facility] Docusate Sodium (Docusate Sodium 100 Mg Capsule) 100 mg PO BID [facility] Last Admin: 11/01/23 07:25 Dose: 100 mg Enoxaparin Sodium (Enoxaparin Sodium 40 Mg/0.4 Ml Syringe) 40 mg SUBCUT DAILY [facility] Last Admin: 11/01/23 11:16 Dose: Not Given Dextrose/Sodium Chloride (D5ns) 1,000 mls @ 125 mls/hr IVCONT .Q8H [facility] Last Admin: 11/01/23 09:05 Dose: 125 mls/hr Piperacillin Sod/Tazobactam (Sod 2.25 gm/ Sodium Chloride) 50 mls @ 100 mls/hr IV Q6H [facility] Last Infusion: 11/01/23 10:26 Dose: Infused Magnesium Oxide (Magnesium Oxide 400 Mg Tablet) 400 mg PO BEDTIME [facility]ONATHAN Melatonin (Melatonin 3 Mg Tablet) 6 mg PO BEDTIME PRN PRN Reason: Insomnia Last Admin: 11/01/23 01:12 Dose: 6 mg Morphine Sulfate (Morphine Sulfate 4 Mg/Ml Cartridge) 2 mg IVPUSH Q6H PRN; Protocol PRN Reason: Pain, Severe (Pain Scale 7-10) Last Admin: 11/01/23 04:38 Dose: 2 mg Ondansetron HCl (Ondansetron Hcl 4 Mg/2 Ml Vial) 4 mg IVPUSH Q8H PRN PRN Reason: Nausea and Vomiting Last Admin: 11/01/23 04:27 Dose: 4 mg Oxycodone HCl (Oxycodone Hcl Immed Release 5 Mg Tablet) 5 mg PO Q6H PRN PRN Reason: Pain, Moderate(Pain Scale 4-6) Last Admin: 11/01/23 01:11 Dose: 5 mg Sodium Chloride (0.9 % Sodium Chloride Flush 3 Ml Syringe) [facility] Last Admin: 11/01/23 10:26 Dose: 3 ml Tamsulosin HCl (Tamsulosin Hcl 0.4 Mg Capsule) 0.4 mg PO BEDTIME [facility] Vitamin D (Cholecalciferol (Vitamin D3) 25 Mcg Tablet) 50 mcg PO DAILY [facility] Last Admin: 11/01/23 07:25 Dose: 50 mcg Home Medications Medication Instructions Recorded Confirmed Last Taken Type amlodipine 5 mg tablet 5 mg PO DAILY 10/31/23 10/31/23 10/31/22 History atorvastatin 80 mg tablet 80 mg PO BEDTIME 10/31/23 10/31/23 10/30/22 History cholecalciferol (vitamin D3) 50 50 mcg PO DAILY 10/31/23 10/31/23 10/31/22 History mcg (2,000 unit) tablet coenzyme Q10 300 mg capsule (Co 300 mg PO DAILY 10/31/23 10/31/23 10/31/22 History Q-10) magnesium oxide 400 mg PO BEDTIME 10/31/23 10/31/23 10/30/22 History potassium citrate 5 mEq (540 mg) 5 meq PO TID 10/31/23 10/31/23 10/31/22 History tablet,extended release tamsulosin 0.4 mg capsule 0.4 mg PO BEDTIME 10/31/23 10/31/23 10/30/22 History Exam Height,Weight and Vital Signs: Height 5 ft 8 in Weight 81.647 kg Last Vital Signs Temp 99.7 F 11/01/23 14:23 Pulse 87 11/01/23 14:23 Resp 16 11/01/23 14:23 BP 112/63 11/01/23 14:23 Pulse Ox 94 11/01/23 14:23 O2 Del Method Nasal Cannula 11/01/23 14:23 O2 Flow Rate 2 11/01/23 14:23 Pertinent Lab Results Pertinent Lab Results: Laboratory Tests 10/31/23 10/31/23 10/31/23 19:02 19:09 20:33 WBC 12.2 H RBC 4.43 L Hgb 13.9 L Hct 40.3 L MCV 91.0 MCH 31.4 MCHC 34.5 RDW 16.1 H Plt Count 223 MPV 9.1 L Immature Gran % (Auto) 0.3 Neut % (Auto) 85.7 H Lymph % (Auto) 4.3 L [place] % (Auto) 9.5 Eos % (Auto) 0.0 Baso % (Auto) 0.2 Lymph # (Auto) 0.5 L [place] # (Auto) 1.2 Eos # (Auto) 0.0 Baso # (Auto) 0.0 Abs Immat Gran (auto) 0.04 H Absolute Neuts (auto) 10.4 H Absolute Nucleated RBC 0.000 Nucleated RBC % (auto) 0.0 Smear Tech's Comments Sodium 132 L Potassium 4.4 Chloride 98 Carbon Dioxide 25 Anion Gap 13 BUN 21 H Creatinine 1.63 H Estim Creat Clear Calc 37.8 Estimated GFR 41 Random Glucose 137 H Lactic Acid 1.4 Calcium 9.2 Magnesium 1.9 Total Bilirubin 0.9 AST 26 ALT 18 Alkaline Phosphatase 65 Total Creatine Kinase 108 Troponin I High Sens 5.4 B-Natriuretic Peptide 29 Total Protein 7.6 Albumin 3.7 Urine Color Dark Yellow Urine Appearance Cloudy Urine pH 5.5 Ur Specific [place] >= 1.030 H Urine Protein 300 (3+) H Urine Glucose (UA) Negative Urine Ketones Trace Urine Blood Moderate (2+) H Urine Nitrite Negative Ur Leukocyte Esterase Moderate (2+) H Urine RBC 11-20 H Urine WBC >50 H Ur Squamous Epith Cells 0-2 Urine Bacteria None Seen Hyaline Casts 3-5 Influenza Type A (PCR) NEGATIVE Influenza Type B (PCR) NEGATIVE RSV RNA Qual (PCR) NEGATIVE SARS-CoV-2 RNA (RT-PCR) NEGATIVE 11/01/23 05:27 WBC 13.9 H RBC 3.82 L Hgb 12.0 L Hct 35.7 L MCV 93.5 MCH 31.4 MCHC 33.6 RDW 16.2 H Plt Count 212 MPV 9.8 Immature Gran % (Auto) 0.7 H Neut % (Auto) 92.7 H Lymph % (Auto) 3.4 L [place] % (Auto) 3.1 Eos % (Auto) 0.0 Baso % (Auto) 0.1 Lymph # (Auto) 0.5 L [place] # (Auto) 0.4 Eos # (Auto) 0.0 Baso # (Auto) 0.0 Abs Immat Gran (auto) 0.10 H Absolute Neuts (auto) 12.9 H Absolute Nucleated RBC 0.000 Nucleated RBC % (auto) 0.0 Smear Tech's Comments VERIFIED Sodium 135 Potassium 4.5 Chloride 102 Carbon Dioxide 24 Anion Gap 14 BUN 20 H Creatinine 1.56 H Estim Creat Clear Calc 39.5 Estimated GFR 44 Random Glucose 144 H Lactic Acid Calcium 8.4 D Magnesium Total Bilirubin AST ALT Alkaline Phosphatase Total Creatine Kinase Troponin I High Sens B-Natriuretic Peptide Total Protein Albumin Urine Color Urine Appearance Urine pH Ur Specific [place] Urine Protein Urine Glucose (UA) Urine Ketones Urine Blood Urine Nitrite Ur Leukocyte Esterase Urine RBC Urine WBC Ur Squamous Epith Cells Urine Bacteria Hyaline Casts Influenza Type A (PCR) Influenza Type B (PCR) RSV RNA Qual (PCR) SARS-CoV-2 RNA (RT-PCR) Airway Mallampati Class: II TM Dist: >3cm Neck ROM: Full Heart: RRR Lungs: CTA Assessment and Plan Assessment Anesthesia Assessment: Anesthesia Plan Discussed Final Anesthetic Review Family History of Problems with Anesthesia: No History of Problems with Anesthesia: No NPO: Yes ASA Class: III and Emergency Final Preanesthetic Review: Meds/Allgs Chart Reviewed, Consent Obtained/Reviewed and Anes Risks/Benef Reviewed Patient Risk: Intermediate Procedure Risk: Low Anesthetic Plan Anesthetic Plan: GA Disposition: Standard PACU
--- NOTE | 2023-11-01 15:52 | HO.ANESPROP2 ---
[facility] [place] Active Problems Active Problems: All Active Problems (Updated 11/01/23 @ 01:15 by Ilia Goodrich MD) Hypoxemia (Acute) Sepsis (Acute) UTI (urinary tract infection) (Acute) Acute hypoxemic respiratory failure (Acute) NEHEMIAH (acute kidney injury) (Acute) Hydronephrosis with ureteral calculus (Acute) Past Medical History Functional capacity: independent ambulation Family History Family history of problems with anesthesia: No Surgical History History of Problems with Anesthesia: No Social History Social History Patient Tobacco Use Status: Former Tobacco user Advance Directives Date on File: 11/01/23 service: No Meds Allergies Allergy/AdvReac Type Severity Reaction Status Date / Time No Known Allergies Allergy Verified 10/31/23 18:11 Active Medications: Current Medications Acetaminophen (Acetaminophen 325 Mg Tablet) 650 mg PO Q6H PRN PRN Reason: Pain, Mild (Pain Scale 1-3) Last Admin: 11/01/23 13:15 Dose: 650 mg Al Hydroxide/Mg Hydroxide (Magnesium Hydrox/Alum Hydrox 30 Ml Oral.Susp) 30 ml PO Q4H PRN PRN Reason: Heartburn/Nausea Amlodipine Besylate (Amlodipine Besylate 5 Mg Tablet) 5 mg PO DAILY [facility]; Protocol Last Admin: 11/01/23 07:24 Dose: 5 mg Atorvastatin Calcium (Atorvastatin Calcium 80 Mg Tablet) 80 mg PO BEDTIME [facility] Docusate Sodium (Docusate Sodium 100 Mg Capsule) 100 mg PO BID [facility] Last Admin: 11/01/23 07:25 Dose: 100 mg Enoxaparin Sodium (Enoxaparin Sodium 40 Mg/0.4 Ml Syringe) 40 mg SUBCUT DAILY [facility] Last Admin: 11/01/23 11:16 Dose: Not Given Fentanyl (Fentanyl Citrate/Pf 100 Mcg/2 Ml Vial) 25 mcg IVPUSH Q5M PRN; Protocol PRN Reason: Pain, Moderate(Pain Scale 4-6) Dextrose/Sodium Chloride (D5ns) 1,000 mls @ 125 mls/hr IVCONT .Q8H [facility] Last Admin: 11/01/23 09:05 Dose: 125 mls/hr Piperacillin Sod/Tazobactam (Sod 2.25 gm/ Sodium Chloride) 50 mls @ 100 mls/hr IV Q6H [facility] Last Infusion: 11/01/23 10:26 Dose: Infused Magnesium Oxide (Magnesium Oxide 400 Mg Tablet) 400 mg PO BEDTIME JONATHAN Melatonin (Melatonin 3 Mg Tablet) 6 mg PO BEDTIME PRN PRN Reason: Insomnia Last Admin: 11/01/23 01:12 Dose: 6 mg Morphine Sulfate (Morphine Sulfate 4 Mg/Ml Cartridge) 2 mg IVPUSH Q6H PRN; Protocol PRN Reason: Pain, Severe (Pain Scale 7-10) Last Admin: 11/01/23 04:38 Dose: 2 mg Ondansetron HCl (Ondansetron Hcl 4 Mg/2 Ml Vial) 4 mg IVPUSH Q8H PRN PRN Reason: Nausea and Vomiting Last Admin: 11/01/23 04:27 Dose: 4 mg Oxycodone HCl (Oxycodone Hcl Immed Release 5 Mg Tablet) 5 mg PO Q6H PRN PRN Reason: Pain, Moderate(Pain Scale 4-6) Last Admin: 11/01/23 01:11 Dose: 5 mg Oxycodone HCl (Oxycodone Hcl Immed Release 5 Mg Tablet) 5 mg PO ONCE PRN PRN Reason: Pain, Severe (Pain Scale 7-10) Sodium Chloride (0.9 % Sodium Chloride Flush 3 Ml Syringe) 3 ml IVFLUSH QSHIFT [facility] Last Admin: 11/01/23 10:26 Dose: 3 ml Tamsulosin HCl (Tamsulosin Hcl 0.4 Mg Capsule) 0.4 mg PO BEDTIME [facility] Vitamin D (Cholecalciferol (Vitamin D3) 25 Mcg Tablet) 50 mcg PO DAILY [facility] Last Admin: 11/01/23 07:25 Dose: 50 mcg Home Medications Medication Instructions Recorded Confirmed Last Taken Type amlodipine 5 mg tablet 5 mg PO DAILY 10/31/23 10/31/23 10/31/22 History atorvastatin 80 mg tablet 80 mg PO BEDTIME 10/31/23 10/31/23 10/30/22 History cholecalciferol (vitamin D3) 50 50 mcg PO DAILY 10/31/23 10/31/23 10/31/22 History mcg (2,000 unit) tablet coenzyme Q10 300 mg capsule (Co 300 mg PO DAILY 10/31/23 10/31/23 10/31/22 History Q-10) magnesium oxide 400 mg PO BEDTIME 10/31/23 10/31/23 10/30/22 History potassium citrate 5 mEq (540 mg) 5 meq PO TID 10/31/23 10/31/23 10/31/22 History tablet,extended release tamsulosin 0.4 mg capsule 0.4 mg PO BEDTIME 10/31/23 10/31/23 10/30/22 History Exam Height,Weight and Vital Signs: Height 5 ft 8 in Weight 81.647 kg Last Vital Signs Temp 99.7 F 11/01/23 14:23 Pulse 87 11/01/23 14:23 Resp 16 11/01/23 14:23 BP 112/63 11/01/23 14:23 Pulse Ox 94 11/01/23 14:23 O2 Del Method Nasal Cannula 11/01/23 14:23 O2 Flow Rate 2 11/01/23 14:23 Pertinent Lab Results Pertinent Lab Results: Laboratory Tests 10/31/23 10/31/23 10/31/23 19:02 19:09 20:33 WBC 12.2 H RBC 4.43 L Hgb 13.9 L Hct 40.3 L MCV 91.0 MCH 31.4 MCHC 34.5 RDW 16.1 H Plt Count 223 MPV 9.1 L Immature Gran % (Auto) 0.3 Neut % (Auto) 85.7 H Lymph % (Auto) 4.3 L [place] % (Auto) 9.5 Eos % (Auto) 0.0 Baso % (Auto) 0.2 Lymph # (Auto) 0.5 L [place] # (Auto) 1.2 Eos # (Auto) 0.0 Baso # (Auto) 0.0 Abs Immat Gran (auto) 0.04 H Absolute Neuts (auto) 10.4 H Absolute Nucleated RBC 0.000 Nucleated RBC % (auto) 0.0 Smear Tech's Comments Sodium 132 L Potassium 4.4 Chloride 98 Carbon Dioxide 25 Anion Gap 13 BUN 21 H Creatinine 1.63 H Estim Creat Clear Calc 37.8 Estimated GFR 41 Random Glucose 137 H Lactic Acid 1.4 Calcium 9.2 Magnesium 1.9 Total Bilirubin 0.9 AST 26 ALT 18 Alkaline Phosphatase 65 Total Creatine Kinase 108 Troponin I High Sens 5.4 B-Natriuretic Peptide 29 Total Protein 7.6 Albumin 3.7 Urine Color Dark Yellow Urine Appearance Cloudy Urine pH 5.5 Ur Specific [place] >= 1.030 H Urine Protein 300 (3+) H Urine Glucose (UA) Negative Urine Ketones Trace Urine Blood Moderate (2+) H Urine Nitrite Negative Ur Leukocyte Esterase Moderate (2+) H Urine RBC 11-20 H Urine WBC >50 H Ur Squamous Epith Cells 0-2 Urine Bacteria None Seen Hyaline Casts 3-5 Influenza Type A (PCR) NEGATIVE Influenza Type B (PCR) NEGATIVE RSV RNA Qual (PCR) NEGATIVE SARS-CoV-2 RNA (RT-PCR) NEGATIVE 11/01/23 05:27 WBC 13.9 H RBC 3.82 L Hgb 12.0 L Hct 35.7 L MCV 93.5 MCH 31.4 MCHC 33.6 RDW 16.2 H Plt Count 212 MPV 9.8 Immature Gran % (Auto) 0.7 H Neut % (Auto) 92.7 H Lymph % (Auto) 3.4 L [place] % (Auto) 3.1 Eos % (Auto) 0.0 Baso % (Auto) 0.1 Lymph # (Auto) 0.5 L [place] # (Auto) 0.4 Eos # (Auto) 0.0 Baso # (Auto) 0.0 Abs Immat Gran (auto) 0.10 H Absolute Neuts (auto) 12.9 H Absolute Nucleated RBC 0.000 Nucleated RBC % (auto) 0.0 Smear Tech's Comments VERIFIED Sodium 135 Potassium 4.5 Chloride 102 Carbon Dioxide 24 Anion Gap 14 BUN 20 H Creatinine 1.56 H Estim Creat Clear Calc 39.5 Estimated GFR 44 Random Glucose 144 H Lactic Acid Calcium 8.4 D Magnesium Total Bilirubin AST ALT Alkaline Phosphatase Total Creatine Kinase Troponin I High Sens B-Natriuretic Peptide Total Protein Albumin Urine Color Urine Appearance Urine pH Ur Specific [place] Urine Protein Urine Glucose (UA) Urine Ketones Urine Blood Urine Nitrite Ur Leukocyte Esterase Urine RBC Urine WBC Ur Squamous Epith Cells Urine Bacteria Hyaline Casts Influenza Type A (PCR) Influenza Type B (PCR) RSV RNA Qual (PCR) SARS-CoV-2 RNA (RT-PCR) Airway Heart: RRR Lungs: Right base diminished breath sounds Assessment and Plan Assessment Anesthesia Assessment: Anesthesia Plan Discussed Final Anesthetic Review Family History of Problems with Anesthesia: No History of Problems with Anesthesia: No NPO: Yes ASA Class: III Final Preanesthetic Review: Meds/Allgs Chart Reviewed, Consent Obtained/Reviewed and Anes Risks/Benef Reviewed Patient Risk: Intermediate Procedure Risk: Low Anesthetic Plan Anesthetic Plan: GA Disposition: Standard PACU
--- NOTE | 2023-11-01 17:12 | MHC.SHP ---
Pre-Procedural Eval Section A Date of Service: 11/01/23 The patient is an INPATIENT: Yes Section B Chief Complaint: Sepsis; UTI: hydroureteronephrosis; Hypoxia Allergies: Allergies Allergy/AdvReac Type Severity Reaction Status Date / Time No Known Allergies Allergy Verified 10/31/23 18:11 Plan Diagnosis/Plan: Unchanged I have reviewed the history and physical and performed a pertinent physical examination on my patient. No changes have occurred unless specified. Plan for Cystoscopy, right retrograde ureteral stent. Risks discussed included but not limited to, possible need to repeat procedure if stone is not completely fragmented, Irritative voiding symptoms, bladder spasms, urgency, blood in urine. Time Spent With Patient Time: Total time managing care of this patient today ____ minutes.
--- NOTE | 2023-11-01 17:40 | P.OP_ITS ---
Operative Note Operative Note Date of Service: 11/01/23 Narrative: PreOperative Diagnosis:?? UTI sepsis, obstructing right proximal ureteral stone Post Operative Diagnosis:?? ?UTI sepsis, obstructing right proximal ureteral stone Procedure: - cystoscopy, right retrograde stent insertion, size 6 B[place] by 26 cm Surgeon:?Dr Kellen Molina Anesthesia:? General Procedure: After informed consent was verified the patient was brought to the operating placed on the OR table in supine position.? General Anesthesia was administered per protocol.? The patient was placed in lithotomy position, prepped and draped in the usual sterile fashion.? Safety pause time-out and side of surgery confirmed.? Antibiotics confirmed. A 22 [place] cystoscope was inserted transurethrally, the bulbous urethra was within normal limits. The prostatic urethra was enlarged. The bladder was visualized.? Both ureteric orifices were visualized. There was significant trabeculations and small diverticuli with cellule changes of the bladder. The? right ureteric orifice was cannulated? and a hydrophilic guidewire was placed up to the level of the renal pelvis under fluoroscopy. The open-ended catheter was passed to the renal pelvis, urine was drained and sent for culture. Minimal contrast was injected and retrograde examination was performed to delineate the renal pelvis. A 6 fr by 26 cm ureteral stent was passed over the guide wire under fluoroscopic guidance. The guide wire was removed. The bladder was emptied.? The rigid cystoscope was removed. ? The patient tolerated the procedure well and was brought to the recovery room in stable condition. Complications: None Drains: Ureteral stent as dictated above
[2023-11-01] MEDS: Atorvastatin Calcium 80 MG TABLET PO (21:36)
[2023-11-01] MEDS: Magnesium Oxide 400 MG TABLET PO (21:36)
[2023-11-01] MEDS: Tamsulosin HCL 0.4 MG CAPSULE PO (21:36)
[2023-11-02 01:27] VITALS: BMI 27.4
[2023-11-02] MEDS: Piperacillin Sodium/Tazobactam 2.25 GM in 0.9 % Sodium Chloride 50 ML IV ×4 (03:06→21:23)
[2023-11-02 03:10] VITALS: BP 112/61; PULSE 71; RESP 18; TEMP 37.2; O2SAT 94
[2023-11-02] MEDS: Dextrose 5 % and 0.9 % NaCl 1,000 ML 125 ML IVCONT ×3 (03:14→14:03)
[2023-11-02 07:37] VITALS: BP 110/58; PULSE 75; RESP 12; TEMP 37.1; O2SAT 91
[2023-11-02] MEDS: Cholecalciferol (Vitamin D3) 25 MCG TABLET 50 MCG PO (08:13)
[2023-11-02] MEDS: amLODIPine Besylate 5 MG TABLET PO (08:13)
[2023-11-02] MEDS: Docusate Sodium 100 MG CAPSULE PO ×2 (08:14→21:22)
[2023-11-02] MEDS: Enoxaparin Sodium 40 MG/0.4 ML SYRINGE SUBCUT (08:15)
[2023-11-02 09:02] LABS: Anion Gap 11 (12-20); Blood Urea Nitrogen 17 mg/dL (9-16); Calcium 8.3 mg/dL (8.4-10.2); Carbon Dioxide 23 mmol/L (22-29); Chloride 106 mmol/L (96-108); Creatinine Clr Calc Pharmacy 56.1; Estimated Glomerular Filt Rate > 60; Glucose Random 149 mg/dL (60-115); Potassium 3.9 mmol/L (3.3-5.1); Sodium 136 mmol/L (135-145)
[2023-11-02 10:40] VITALS: BP 110/58; PULSE 75; O2SAT 91
--- NOTE | 2023-11-02 12:21 | HO.POSTANES ---
Post Anesthesia Evaluation Post Anesthesia Evaluation Date of Service: 11/02/23 Vital Signs: Vital Signs Temp Pulse Resp BP Pulse Ox O2 Del Method O2 Flow Rate 11/02/23 10:40 75 110/58 L 91 L 11/02/23 07:37 98.8 F 75 12 110/58 L 91 L Nasal Cannula 2 11/02/23 03:10 98.9 F 71 18 112/61 94 Nasal Cannula 2.5 Anesthesia: General Mental Status: Awake Pain Control: Satisfactory Nausea/Vomiting: None Hydration: Adequate Anesthesia-Related Issues: No Anes. Related Issues
[2023-11-02 12:37] VITALS: RESP 12
[2023-11-02] MEDS: Albuterol/Iprat 2.5/0.5MG 3 ML AMPUL.NEB INHALE (14:01)
--- NOTE | 2023-11-02 14:10 | HO.PM.IMPN ---
Subjective Subjective Date of Service: 11/02/23 Interval History: sepsis sec to uti Review of Systems no fever or chills has sats 88 %,dry cough,does not seems sob. Physical Exam Vital Signs: Vital Signs: Last Vital Signs Temp 98.8 F 11/02/23 07:37 Pulse 75 11/02/23 10:40 Resp 12 11/02/23 12:37 BP 110/58 L 11/02/23 10:40 Pulse Ox 91 L 11/02/23 10:40 O2 Del Method Nasal Cannula 11/02/23 07:37 O2 Flow Rate 2 11/02/23 07:37 BMI result Body Mass Index 27.4 Appearance: Alert.? Oriented X3. cvs: rrr, [id number] . res: air entry fair ,slightly diminshed at bases . abd: no rebound or guarding ,nt, bs present. right cva tenderness ext pulses present , no cyanosis . neuro: axo3 , nonfocal. Objective Data Active Medications Acetaminophen (Acetaminophen 325 Mg Tablet) 650 mg PO Q6H PRN PRN Reason: Pain, Mild (Pain Scale 1-3) Last Admin: 11/01/23 13:15 Dose: 650 mg Documented By: LEÓN Al Hydroxide/Mg Hydroxide (Magnesium Hydrox/Alum Hydrox 30 Ml Oral.Susp) 30 ml PO Q4H PRN PRN Reason: Heartburn/Nausea Albuterol/Ipratropium (Albuterol/Iprat 2.5/0.5mg 3 Ml Ampul.Neb) 3 ml INHALE Q3H PRN PRN Reason: Sob Last Admin: 11/02/23 14:01 Dose: 3 ml Documented By: JENNIFER Amlodipine Besylate (Amlodipine Besylate 5 Mg Tablet) 5 mg PO DAILY [facility]; Protocol Last Admin: 11/02/23 08:13 Dose: 5 mg Documented By: JENNIFER Atorvastatin Calcium (Atorvastatin Calcium 80 Mg Tablet) 80 mg PO BEDTIME [facility] Last Admin: 11/01/23 21:36 Dose: 80 mg Documented By: WAYLON Docusate Sodium (Docusate Sodium 100 Mg Capsule) 100 mg PO BID [facility] Last Admin: 11/02/23 08:14 Dose: 100 mg Documented By: JENNIFER Enoxaparin Sodium (Enoxaparin Sodium 40 Mg/0.4 Ml Syringe) 40 mg SUBCUT DAILY [facility] Last Admin: 11/02/23 08:15 Dose: 40 mg Documented By: JENNIFER Fentanyl (Fentanyl Citrate/Pf 100 Mcg/2 Ml Vial) 25 mcg IVPUSH Q5M PRN; Protocol PRN Reason: Pain, Moderate(Pain Scale 4-6) Piperacillin Sod/Tazobactam (Sod 2.25 gm/ Sodium Chloride) 50 mls @ 100 mls/hr IV Q6H [facility] Last Infusion: 11/02/23 08:43 Dose: Infused Documented By: JENNIFER Magnesium Oxide (Magnesium Oxide 400 Mg Tablet) 400 mg PO BEDTIME [facility] Last Admin: 11/01/23 21:36 Dose: 400 mg Documented By: WAYLON Melatonin (Melatonin 3 Mg Tablet) 6 mg PO BEDTIME PRN PRN Reason: Insomnia Last Admin: 11/01/23 01:12 Dose: 6 mg Documented By: AMANDA Morphine Sulfate (Morphine Sulfate 4 Mg/Ml Cartridge) 2 mg IVPUSH Q6H PRN; Protocol PRN Reason: Pain, Severe (Pain Scale 7-10) Last Admin: 11/01/23 04:38 Dose: 2 mg Documented By: AMANDA Ondansetron HCl (Ondansetron Hcl 4 Mg/2 Ml Vial) 4 mg IVPUSH Q8H PRN PRN Reason: Nausea and Vomiting Last Admin: 11/01/23 04:27 Dose: 4 mg Documented By: CLEMENT Oxycodone HCl (Oxycodone Hcl Immed Release 5 Mg Tablet) 5 mg PO Q6H PRN PRN Reason: Pain, Moderate(Pain Scale 4-6) Last Admin: 11/01/23 01:11 Dose: 5 mg Documented By: AMANDA Oxycodone HCl (Oxycodone Hcl Immed Release 5 Mg Tablet) 5 mg PO ONCE PRN PRN Reason: Pain, Severe (Pain Scale 7-10) Sodium Chloride (0.9 % Sodium Chloride Flush 3 Ml Syringe) 3 ml IVFLUSH QSHIFT [facility] Last Admin: 11/02/23 08:13 Dose: Not Given Documented By: JENNIFER Non-Admin Reason: IV Running Tamsulosin HCl (Tamsulosin Hcl 0.4 Mg Capsule) 0.4 mg PO BEDTIME [facility] Last Admin: 11/01/23 21:36 Dose: 0.4 mg Documented By: WAYLON Vitamin D (Cholecalciferol (Vitamin D3) 25 Mcg Tablet) 50 mcg PO DAILY [facility]ATH[facility] Last Admin: 11/02/23 08:13 Dose: 50 mcg Documented By: JENNIFER Labs 11/01/23 05:27 11/02/23 08:32 Labs: Laboratory Results - last 24 hr 11/02/23 08:32 Anion Gap 11 L Estim Creat Clear Calc 56.1 Estimated GFR > 60 Random Glucose 149 H Calcium 8.3 L Microbiology Microbiology Results: Microbiology 11/01/23 17:37 Urine Culture - Preliminary Urine clean catch - Clean Catch Midstream Culture in progress. 10/31/23 20:52 Urine Culture - Final Urine clean catch - Urine sorto top 10/31/23 19:24 Blood Culture - Preliminary Blood - Venous No growth after 24 hours. 10/31/23 19:09 Blood Culture - Preliminary Blood - Venous No growth after 24 hours. Assessment and Plan (1) Hypoxemia: Status: Acute (2) Sepsis: Status: Acute (3) UTI (urinary tract infection): Status: Acute Plan 73 year old pleasant white male with past medical history of recurrent UTI's, nephrolithiasis, hypertension, hyperlipidemia and BPH who is ehre with Sepsis- due to UTI abd [id number] hydronephrosis and hydroureter extending up to a 0.6 cm calculi at the right ureteropelvic junction. There is a delayed right-sided nephrogram phase. Bladder is decompressed with diffuse bladder wall thickening. Cystitis would be difficult to exclude in this setting and correlation with urinalysis would be recommended. not in shock and Lactic acid not elevated blood cultures -gram neg bacteremia follow up on urine & blood cultures,treat with Zosyn Right sided hydronephrosis and hydroureter secondary to an obstructing 0.6 cm stone at the right ureteropelvic junction. will need stone expulsion or extraction given presence of UTI consult Urology -now cystoscopy, right retrograde stent insertion. renal function improving Hypoxemic respiratory failure possible sec dec respiratory efforts /atelactasis added vbg,cxr incentive spriometry,chest physio,nebs. Acute renal failure- improved with hydration. Hypertension- BP control is fair continue Amlodipine Hyperlipidemia-continue atorvastatin DVT: SC Lovenox ongoing hospitlisation need :sepsis ,bactermia with UTI and Sepsis and further management of right obstructing ureteral calculi,elida-need hydration and iv antibiotics as well as urology expert consultation. Quality Stroke Does the patient have a stroke diagnosis?: No VTE Prior VTE?: No VTE Risk Level:: Medical - moderate - high VTE Device Contraindication: N/A - Device Ordered VTE Drug Contraindication: N/A - Med Ordered
[2023-11-02] MEDS: Furosemide 20 MG/2 ML VIAL IVPUSH (14:35)
[2023-11-02 15:26] LABS: VBG Base Excess 1.3 mmol/L; VBG HCO3 24 mmol/L (22-26); VBG pCO2 32 mmHg; VBG pH 7.47 (7.32-7.43); VBG pO2 216 mmHg
[2023-11-02 15:28] LABS: Venous Blood Gas Refer to POC result
[2023-11-02 16:00] VITALS: BP 132/62; PULSE 74; RESP 18; TEMP 37.2; O2SAT 92
[2023-11-02] MEDS: 0.9 % Sodium Chloride Flush 3 ML SYRINGE IVFLUSH ×2 (16:42→21:24)
[2023-11-02 19:45] VITALS: BP 119/71; PULSE 71; RESP 17; TEMP 37.1; O2SAT 93
[2023-11-02] MEDS: Atorvastatin Calcium 80 MG TABLET PO (21:23)
[2023-11-02] MEDS: Magnesium Oxide 400 MG TABLET PO (21:23)
[2023-11-02] MEDS: Tamsulosin HCL 0.4 MG CAPSULE PO (21:23)
[2023-11-03 03:26] VITALS: BP 123/76; PULSE 77; RESP 17; TEMP 36.7; O2SAT 94
[2023-11-03] MEDS: Piperacillin Sodium/Tazobactam 2.25 GM in 0.9 % Sodium Chloride 50 ML IV ×4 (03:48→21:22)
[2023-11-03 07:47] VITALS: BP 134/78; PULSE 71; RESP 18; TEMP 36.8; O2SAT 90
[2023-11-03] MEDS: Enoxaparin Sodium 40 MG/0.4 ML SYRINGE SUBCUT (08:26)
[2023-11-03] MEDS: amLODIPine Besylate 5 MG TABLET PO (08:26)
[2023-11-03] MEDS: Cholecalciferol (Vitamin D3) 25 MCG TABLET 50 MCG PO (08:26)
[2023-11-03] MEDS: Acetaminophen 325 MG TABLET 650 MG PO ×3 (08:26→21:21)
[2023-11-03] MEDS: Docusate Sodium 100 MG CAPSULE PO ×2 (08:26→21:21)
[2023-11-03] MEDS: 0.9 % Sodium Chloride Flush 3 ML SYRINGE IVFLUSH ×2 (08:27→21:22)
--- NOTE | 2023-11-03 11:55 | P.PNIM_ITS ---
Subjective Subjective Date of Service: 11/03/23 Interval History: sepsis sec to uti still has hypoxia Review of Systems denies any chest pain at rest seems comfortable ,sats seems flactuating advised to use incentive spirometry Physical Exam 2 Vital Signs: Vital Signs: Last Vital Signs Temp 98.3 F 11/03/23 07:47 Pulse 71 11/03/23 07:47 Resp 18 11/03/23 07:47 BP 134/78 11/03/23 07:47 Pulse Ox 90 L 11/03/23 07:47 O2 Del Method Nasal Cannula 11/03/23 07:47 O2 Flow Rate 2 11/03/23 07:47 BMI result Body Mass Index 27.4 Appearance: Alert.? Oriented X3. cvs: rrr, [id number] . res: air entry fair ,slightly diminshed at bases . abd: no rebound or guarding ,nt, bs present. right cva tenderness ext pulses present , no cyanosis . neuro: axo3 , nonfocal. Objective Data Active Medications Acetaminophen (Acetaminophen 325 Mg Tablet) 650 mg PO Q6H PRN PRN Reason: Pain, Mild (Pain Scale 1-3) Last Admin: 11/03/23 08:26 Dose: 650 mg Documented By: OVI Al Hydroxide/Mg Hydroxide (Magnesium Hydrox/Alum Hydrox 30 Ml Oral.Susp) 30 ml PO Q4H PRN PRN Reason: Heartburn/Nausea Albuterol/Ipratropium (Albuterol/Iprat 2.5/0.5mg 3 Ml Ampul.Neb) 3 ml INHALE Q3H PRN PRN Reason: Sob Last Admin: 11/02/23 14:01 Dose: 3 ml Documented By: JENNIFER Amlodipine Besylate (Amlodipine Besylate 5 Mg Tablet) 5 mg PO DAILY [facility]; Protocol Last Admin: 11/03/23 08:26 Dose: 5 mg Documented By: OVI Atorvastatin Calcium (Atorvastatin Calcium 80 Mg Tablet) 80 mg PO BEDTIME [facility] Last Admin: 11/02/23 21:23 Dose: 80 mg Documented By: LAURITA Docusate Sodium (Docusate Sodium 100 Mg Capsule) 100 mg PO BID [facility] Last Admin: 11/03/23 08:26 Dose: 100 mg Documented By: OVI Enoxaparin Sodium (Enoxaparin Sodium 40 Mg/0.4 Ml Syringe) 40 mg SUBCUT DAILY [facility] Last Admin: 11/03/23 08:26 Dose: 40 mg Documented By: OVI Piperacillin Sod/Tazobactam (Sod 2.25 gm/ Sodium Chloride) 50 mls @ 100 mls/hr IV Q6H [facility] Last Infusion: 11/03/23 09:17 Dose: Infused Documented By: OVI Magnesium Oxide (Magnesium Oxide 400 Mg Tablet) 400 mg PO BEDTIME [facility] Last Admin: 11/02/23 21:23 Dose: 400 mg Documented By: LAURITA Melatonin (Melatonin 3 Mg Tablet) 6 mg PO BEDTIME PRN PRN Reason: Insomnia Last Admin: 11/01/23 01:12 Dose: 6 mg Documented By: AMANDA Morphine Sulfate (Morphine Sulfate 4 Mg/Ml Cartridge) 2 mg IVPUSH Q6H PRN; Protocol PRN Reason: Pain, Severe (Pain Scale 7-10) Last Admin: 11/01/23 04:38 Dose: 2 mg Documented By: AMANDA Ondansetron HCl (Ondansetron Hcl 4 Mg/2 Ml Vial) 4 mg IVPUSH Q8H PRN PRN Reason: Nausea and Vomiting Last Admin: 11/01/23 04:27 Dose: 4 mg Documented By: CLEMENT Oxycodone HCl (Oxycodone Hcl Immed Release 5 Mg Tablet) 5 mg PO Q6H PRN PRN Reason: Pain, Moderate(Pain Scale 4-6) Last Admin: 11/01/23 01:11 Dose: 5 mg Documented By: AMANDA Oxycodone HCl (Oxycodone Hcl Immed Release 5 Mg Tablet) 5 mg PO ONCE PRN PRN Reason: Pain, Severe (Pain Scale 7-10) Sodium Chloride (0.9 % Sodium Chloride Flush 3 Ml Syringe) 3 ml IVFLUSH QSHIFT [facility] Last Admin: 11/03/23 08:27 Dose: 3 ml Documented By: OVI Tamsulosin HCl (Tamsulosin Hcl 0.4 Mg Capsule) 0.4 mg PO BEDTIME [facility] Last Admin: 11/02/23 21:23 Dose: 0.4 mg Documented By: LAURITA Vitamin D (Cholecalciferol (Vitamin D3) 25 Mcg Tablet) 50 mcg PO DAILY [facility] Last Admin: 11/03/23 08:26 Dose: 50 mcg Documented By: OVI Labs 11/01/23 05:27 11/02/23 08:32 Labs: Laboratory Results - last 24 hr 11/02/23 15:19 VBG pH 7.47 H VBG pCO2 32 VBG pO2 216 VBG HCO3 24 VBG O2 Saturation 100.0 VBG Base Excess 1.3 Microbiology Microbiology Results: Microbiology 11/01/23 17:37 Urine Culture - Preliminary Urine clean catch - Clean Catch Midstream Enterococcus/Streptococcus sp 10/31/23 19:24 Blood Culture - Preliminary Blood - Venous No growth after 48 hours. 10/31/23 19:09 Blood Culture - Preliminary Blood - Venous No growth after 48 hours. 10/31/23 20:52 Urine Culture - Final Urine clean catch - Urine sorto top Assessment and Plan (1) Hypoxemia: Status: Acute (2) Sepsis: Status: Acute (3) Acute hypoxemic respiratory failure: Status: Acute Plan 73 year old pleasant white male with past medical history of recurrent UTI's, nephrolithiasis, hypertension, hyperlipidemia and BPH who is ehre with Sepsis- due to UTI: abd [id number] hydronephrosis and hydroureter extending up to a 0.6 cm calculi at the right ureteropelvic junction. There is a delayed right-sided nephrogram phase. Bladder is decompressed with diffuse bladder wall thickening. Cystitis would be difficult to exclude in this setting and correlation with urinalysis would be recommended. not in shock and Lactic acid not elevated blood cultures -negative follow up on urine - enterococcus /strepcoccus. continue treat with Zosyn. id eval. Right sided hydronephrosis and hydroureter secondary to an obstructing 0.6 cm stone at the right ureteropelvic junction. will need stone expulsion or extraction given presence of UTI consult Urology -now cystoscopy, right retrograde stent insertion. renal function improving Hypoxemic respiratory failure possible sec dec respiratory efforts /atelactasis vbgseems fine ,cxr-possible atelactasis incentive spriometry,chest physio,nebs. Acute renal failure- improved with hydration. Hypertension- BP control is fair continue Amlodipine Hyperlipidemia-continue atorvastatin DVT: SC Lovenox ongoing hospitlisation need :sepsis ,bactermia with UTI and Sepsis and further management of right obstructing ureteral calculi,elida-need hydration and iv antibiotics as well as urology expert consultation. Quality Stroke Does the patient have a stroke diagnosis?: No VTE Prior VTE?: No VTE Risk Level:: Medical - moderate - high VTE Device Contraindication: N/A - Device Ordered VTE Drug Contraindication: N/A - Med Ordered
[2023-11-03 15:00] VITALS: O2SAT 92
[2023-11-03 15:23] VITALS: BP 150/90; PULSE 70; RESP 18; TEMP 37; O2SAT 92
[2023-11-03] MEDS: Furosemide 20 MG/2 ML VIAL IVPUSH (18:42)
[2023-11-03 19:37] VITALS: BP 131/84; PULSE 73; RESP 17; TEMP 36.4; O2SAT 94
[2023-11-03] MEDS: Atorvastatin Calcium 80 MG TABLET PO (21:21)
[2023-11-03] MEDS: Tamsulosin HCL 0.4 MG CAPSULE PO (21:21)
[2023-11-03] MEDS: Magnesium Oxide 400 MG TABLET PO (21:21)
[2023-11-03] MEDS: Melatonin 3 MG TABLET 6 MG PO (21:21)
[2023-11-04] VITALS (8 sets, daily range): BP systolic 123–162; BP diastolic 71–85; PULSE 69–98; RESP 16–20; TEMP 36.1–37.3; O2SAT 91–93
[2023-11-04] MEDS: Piperacillin Sodium/Tazobactam 2.25 GM in 0.9 % Sodium Chloride 50 ML IV ×2 (03:40→08:11)
[2023-11-04] MEDS: Acetaminophen 325 MG TABLET 650 MG PO (03:40)
[2023-11-04] MEDS: Albuterol/Iprat 2.5/0.5MG 3 ML AMPUL.NEB INHALE ×3 (08:10→15:28)
[2023-11-04] MEDS: Cholecalciferol (Vitamin D3) 25 MCG TABLET 50 MCG PO (08:11)
[2023-11-04] MEDS: Docusate Sodium 100 MG CAPSULE PO (08:11)
[2023-11-04] MEDS: Enoxaparin Sodium 40 MG/0.4 ML SYRINGE SUBCUT (08:11)
[2023-11-04] MEDS: amLODIPine Besylate 5 MG TABLET PO (08:11)
[2023-11-04] MEDS: 0.9 % Sodium Chloride Flush 3 ML SYRINGE IVFLUSH (08:11)
[2023-11-04] MEDS: levoFLOXacin/D5W 750 MG/150 ML PIGGYBACK 100 MG IV (10:16)
--- NOTE | 2023-11-04 13:34 | P.PNIM_ITS ---
Subjective Subjective Date of Service: 11/05/23 Interval History: sepsis sec to uti still has hypoxia Review of Systems no sob hypoxia resolved Physical Exam 2 Vital Signs: Vital Signs: Last Vital Signs Temp 98.7 F 11/04/23 07:42 Pulse 71 11/04/23 12:07 Resp 18 11/04/23 12:07 BP 162/85 H 11/04/23 07:42 Pulse Ox 92 11/04/23 07:42 O2 Del Method Nasal Cannula 11/04/23 07:42 O2 Flow Rate 2.5 11/04/23 07:42 Oxygen Flow Rate 2 11/03/23 15:00 BMI result Body Mass Index 27.4 Appearance: Alert.? Oriented X3. cvs: [id number], [id number] . res: air entry fair ,slightly diminshed at bases . abd: no rebound or guarding ,nt, bs present. right cva tenderness ext pulses present , no cyanosis . neuro: axo3 , nonfocal. Objective Data Active Medications Acetaminophen (Acetaminophen 325 Mg Tablet) 650 mg PO Q6H PRN PRN Reason: Pain, Mild (Pain Scale 1-3) Last Admin: 11/04/23 03:40 Dose: 650 mg Documented By: LAURITA Acetaminophen/Butalbital/Caffeine (Butalb/Acetamin/Caff 50/325/40 Tablet) 1 tab PO Q4H PRN PRN Reason: Headache Al Hydroxide/Mg Hydroxide (Magnesium Hydrox/Alum Hydrox 30 Ml Oral.Susp) 30 ml PO Q4H PRN PRN Reason: Heartburn/Nausea Albuterol/Ipratropium (Albuterol/Iprat 2.5/0.5mg 3 Ml Ampul.Neb) 3 ml INHALE Q3H PRN PRN Reason: Sob Last Admin: 11/02/23 14:01 Dose: 3 ml Documented By: JENNIFER Albuterol/Ipratropium (Albuterol/Iprat 2.5/0.5mg 3 Ml Ampul.Neb) 3 ml INHALE RQ4H WHILE AWAKE [facility] Last Admin: 11/04/23 12:07 Dose: 3 ml Documented By: DARION Amlodipine Besylate (Amlodipine Besylate 5 Mg Tablet) 5 mg PO DAILY [facility]; Protocol Last Admin: 11/04/23 08:11 Dose: 5 mg Documented By: OVI Atorvastatin Calcium (Atorvastatin Calcium 80 Mg Tablet) 80 mg PO BEDTIME [facility] Last Admin: 11/03/23 21:21 Dose: 80 mg Documented By: LAURITA Docusate Sodium (Docusate Sodium 100 Mg Capsule) 100 mg PO BID [facility] Last Admin: 11/04/23 08:11 Dose: 100 mg Documented By: OVI Enoxaparin Sodium (Enoxaparin Sodium 40 Mg/0.4 Ml Syringe) 40 mg SUBCUT DAILY [facility] Last Admin: 11/04/23 08:11 Dose: 40 mg Documented By: OVI Levofloxacin (Levaquin) 750 mg in 150 mls @ 100 mls/hr IV Q24H [facility] Last Infusion: 11/04/23 12:01 Dose: Infused Documented By: OVI Magnesium Oxide (Magnesium Oxide 400 Mg Tablet) 400 mg PO BEDTIME [facility] Last Admin: 11/03/23 21:21 Dose: 400 mg Documented By: LAURITA Melatonin (Melatonin 3 Mg Tablet) 6 mg PO BEDTIME PRN PRN Reason: Insomnia Last Admin: 11/03/23 21:21 Dose: 6 mg Documented By: LAURITA Morphine Sulfate (Morphine Sulfate 4 Mg/Ml Cartridge) 2 mg IVPUSH Q6H PRN; Protocol PRN Reason: Pain, Severe (Pain Scale 7-10) Last Admin: 11/01/23 04:38 Dose: 2 mg Documented By: AMANDA Ondansetron HCl (Ondansetron Hcl 4 Mg/2 Ml Vial) 4 mg IVPUSH Q8H PRN PRN Reason: Nausea and Vomiting Last Admin: 11/01/23 04:27 Dose: 4 mg Documented By: CLEMENT Oxycodone HCl (Oxycodone Hcl Immed Release 5 Mg Tablet) 5 mg PO Q6H PRN PRN Reason: Pain, Moderate(Pain Scale 4-6) Last Admin: 11/01/23 01:11 Dose: 5 mg Documented By: AMANDA Oxycodone HCl (Oxycodone Hcl Immed Release 5 Mg Tablet) 5 mg PO ONCE PRN PRN Reason: Pain, Severe (Pain Scale 7-10) Sodium Chloride (0.9 % Sodium Chloride Flush 3 Ml Syringe) 3 ml IVFLUSH QSHIFT [facility] Last Admin: 11/04/23 08:11 Dose: 3 ml Documented By: OVI Tamsulosin HCl (Tamsulosin Hcl 0.4 Mg Capsule) 0.4 mg PO BEDTIME [facility] Last Admin: 11/03/23 21:21 Dose: 0.4 mg Documented By: LAURITA Vitamin D (Cholecalciferol (Vitamin D3) 25 Mcg Tablet) 50 mcg PO DAILY [facility] Last Admin: 11/04/23 08:11 Dose: 50 mcg Documented By: OVI Labs 11/01/23 05:27 11/02/23 08:32 Microbiology Microbiology Results: Microbiology 11/01/23 17:37 Urine Culture - Final Urine clean catch - Clean Catch Midstream Enterococcus faecium Assessment and Plan (1) Hypoxemia: Status: Acute (2) Sepsis: Status: Acute (3) Acute hypoxemic respiratory failure: Status: Acute Plan 73 year old pleasant white male with past medical history of recurrent UTI's, nephrolithiasis, hypertension, hyperlipidemia and BPH who is ehre with Sepsis- due to UTI: abd [id number] hydronephrosis and hydroureter extending up to a 0.6 cm calculi at the right ureteropelvic junction. There is a delayed right-sided nephrogram phase. Bladder is decompressed with diffuse bladder wall thickening. Cystitis would be difficult to exclude in this setting and correlation with urinalysis would be recommended. not in shock and Lactic acid not elevated blood cultures -negative follow up on urine - enterococcus /strepcoccus. continue treat with Zosyn. id eval. Right sided hydronephrosis and hydroureter secondary to an obstructing 0.6 cm stone at the right ureteropelvic junction. will need stone expulsion or extraction given presence of UTI consult Urology -now cystoscopy, right retrograde stent insertion. renal function improving Hypoxemic respiratory failure possible sec dec respiratory efforts /atelactasis vbgseems fine ,cxr-possible atelactasis incentive spriometry,chest physio,nebs. Acute renal failure- improved with hydration. Hypertension- BP control is fair continue Amlodipine Hyperlipidemia-continue atorvastatin DVT: SC Lovenox ongoing hospitlisation need :sepsis ,bactermia with UTI and Sepsis and further management of right obstructing ureteral calculi,elida-need hydration and iv antibiotics as well as urology expert consultation. Quality Stroke Does the patient have a stroke diagnosis?: No VTE Prior VTE?: No VTE Risk Level:: Medical - moderate - high VTE Device Contraindication: N/A - Device Ordered VTE Drug Contraindication: N/A - Med Ordered
--- NOTE | 2023-11-04 15:46 | P.DS_ITS ---
DS: Providers Provider Date of Service: 11/04/23 Date of admission: 10/31/23 23:48 Date of discharge: 11/04/23 Primary care physician: Jeffery Amador MD Consults: 10/31/23 23:16 Consult to Urology Routine Consulting Provider: Aston Velasquez Reason for consultation: Hydronephrosis & hydroureter with ureteral ca Has provider been notified: No 11/03/23 12:03 Consult to Infectious Diseases Routine Consulting Provider: [facility] [place] [facility] Reason for consultation: uti /enteroccus Has provider been notified: No DS: Diagnosis Discharge Diagnosis (1) Hypoxemia: Status: Acute (2) Sepsis: Status: Acute (3) Acute hypoxemic respiratory failure: Status: Acute DS: Summary Hospital Course Hospital Course: 73 year old pleasant white male with past medical history of recurrent UTI's, nephrolithiasis, hypertension, hyperlipidemia and BPH who presents to the emergency room accompanied by his reporting ongoing infra-umbilical and right flank pain. He started feeling unwell about 4 to 5 days ago with recurrent fevers with the highest recorded temperature being 102.5 F. He also had several episodes of non-bloody diarrhea with associated nausea and vomiting that lasted for 2 days and have now resolved. He has however continued to have intermittent febrile episodes and has now became generally weak to a point where he has been spending most of his day in bed. Today morning, he noticed that he had difficulty breathing and this is what prompted him to seek care. He denies any associated headaches, dizziness, chest pain, dysuria, hematuria or urgency. Initial work up done in the emergency room included a CT angiogram of the chest that did not show any acute abnormality while a CT scan of the abdomen and pelvis showed right sided hydroureteronephrosis due to a 0.6 cm obstructing calculi at the right ureteropelvic junction with associated cystitis. Blood work done was significant for a leukocytosis of 12.2 k/mm3, mild hyponatremia (132) and acuter renal failure with a serum creatinine of 1.63 mg/dL (not sure about his baseline). He received IV Zosyn and oral Flomax following which admission was requested. hospital course: Sepsis secondary to enterococcal UTI: started on zosyn ,switched to po levaquin -complete for 7 days, blood cultures negative. elida with possible obstructive uropathy sec Right sided hydronephrosis and hydroureter- received iv fluids and ureteral stent placed by urology -elida seems improved. patient need to moniter bmp and follow up with urology outpatient. mild hypoxia possibly mulifactorial : poor respiratory efforts,cxr shows atelactasis :does not feel sob, seems to improved with incentive spirometry,nebs and activity. now sats resting and walking in 92-94% on room air plan: please complete course of levofloxacin 750 mg po daily for 13 more days. Above management discussed with the patient and her in detail length both understand and in agreement with the above plan, time spent 50 minutes and 50% time spent on counseling. Time Attestation Discharge coordination time: Greater than 30 minutes Quality: Safe Use of Opioids Does Pt have an Active Cancer Diagnosis on the Problem List?: No Quality: Stroke Does the patient have a stroke diagnosis?: No Physical Exam Vital Signs: Vital Signs: Last Vital Signs Temp 99.1 F 11/04/23 15:25 Pulse 88 11/04/23 15:30 Resp 16 11/04/23 15:30 BP 123/71 11/04/23 15:25 Pulse Ox 93 11/04/23 15:25 O2 Del Method Room Air 11/04/23 15:25 O2 Flow Rate 2.5 11/04/23 07:42 Oxygen Flow Rate 2 11/03/23 15:00 BMI result Body Mass Index 27.4 Appearance: Alert.? Oriented X3. cvs: [id number], [id number] . res: air entry fair ,slightly diminshed at bases . abd: no rebound or guarding ,nt, bs present. right cva tenderness ext pulses present , no cyanosis . neuro: axo3 , nonfocal. DS: Data Data Completed and Pending Labs on day of discharge: Preliminary micro results at discharge 10/31/23 19:24 Blood Culture - Preliminary Blood - Venous No growth after 48 hours. 10/31/23 19:09 Blood Culture - Preliminary Blood - Venous No growth after 48 hours. Imaging Chest x-ray: Radiologist's impression: ITS Impressions Chest X-Ray 10/31/23 18:21 IMPRESSION: Minimal linear atelectasis or scar at the left lung base. Abdomen/Pelvis CT 10/31/23 20:19 IMPRESSION: 1. No evidence for pulmonary emboli. 2. Right-sided hydronephrosis and hydroureter extending up to a 0.6 cm calculi at the right ureteropelvic junction. There is a delayed right-sided nephrogram phase. 3. Bladder is decompressed with diffuse bladder wall thickening. Cystitis would be difficult to exclude in this setting and correlation with urinalysis would be recommended. 4. There is a small cystic structure seen along the posterior aspect of the bladder abutting the seminal vesicle more likely due to bladder diverticula although seminal vesicle/ejaculatory duct cyst cannot be excluded with this location. VTE: Negative. Chest CTA 10/31/23 20:19 IMPRESSION: 1. No evidence for pulmonary emboli. 2. Right-sided hydronephrosis and hydroureter extending up to a 0.6 cm calculi at the right ureteropelvic junction. There is a delayed right-sided nephrogram phase. 3. Bladder is decompressed with diffuse bladder wall thickening. Cystitis would be difficult to exclude in this setting and correlation with urinalysis would be recommended. 4. There is a small cystic structure seen along the posterior aspect of the bladder abutting the seminal vesicle more likely due to bladder diverticula although seminal vesicle/ejaculatory duct cyst cannot be excluded with this location. VTE: Negative. Chest X-Ray 11/02/23 16:35 IMPRESSION: 1. No acute cardiopulmonary process seen. Minimal atelectatic changes in the lingula and right middle lobe. 2. Moderate spondylosis mid and lower dorsal spine. Discharge Plan Discharge Anticipated Discharge Date/Time: 11/04/23 13:17 Patient Disposition: Home, Self-Care Discharge Diagnosis: Sepsis- due to UTI,Right sided hydronephrosis and hydroureter-ureteral stent . Referrals: Jeffery Amador MD [Primary Care Provider] - 1 Week Discharge Medications: New levofloxacin 750 mg tablet 750 mg PO DAILY Qty: 13 0RF Continued atorvastatin 80 mg Tablet 80 mg PO BEDTIME amlodipine 5 mg Tablet 5 mg PO DAILY tamsulosin 0.4 mg capsule 0.4 mg PO BEDTIME Co Q-10 300 mg Capsule 300 mg PO DAILY cholecalciferol (vitamin D3) 50 mcg (2,000 unit) Tablet 50 mcg PO DAILY magnesium oxide 400 mg magnesium Tablet 400 mg PO BEDTIME potassium citrate 5 mEq (540 mg) tablet extended release 5 meq PO TID Discharge Orders: Discharge Order (Routine); Ordered 11/04/23 Ordered By: Ekaterina Henriquez Diet: Advance to usual diet Activity on Discharge: As tolerated Stand Alone Forms: Patient Portal Discharge page Care Plan Goals: Sepsis secondary to enterococcal UTI: started on zosyn ,switched to po levaquin -complete for 7 days, blood cultures negative. elida with possible obstructive uropathy sec Right sided hydronephrosis and hy droureter- received iv fluids and ureteral stent placed by urology -elida seems improved. patient need to moniter bmp and follow up with urology outpatient. mild hypoxia possibly mulifactorial : poor respiratory efforts,cxr shows atelactasis :does not feel sob, seems to improved with incentive spirometry,nebs and activity. now sats resting and walking in 92-94% on room air please complete course of levofloxacin 750 mg po daily for 13 more days. Health Concerns: as above. Plan of Treatment: as above. Assessment: as above.
--- NOTE | 2023-11-04 15:56 | W.PM.IDCN ---
History of Present Illness Data of Consult Service Date: 11/04/23 Requesting physician: Ekaterina Henriquez Primary Care Provider: Jeffery Amador MD [facility] Reason for consult: urine enterococcus faecium with nephrolithiasis He presents with five days lower abdominal discomfort as well as nausea,vomiting and diarrhea. He had temperature 102. He has right hydronephrosis with .6 cm calculi. He has enterococcus faecium sensitive to Levaquin. Review of Systems Review of Systems: Yes all other systems are reviewed and are negative [facility] Family History Family history: reviewed and not pertinent Social History Social History Household Members: Spouse Patient Tobacco Use Status: Former Tobacco user Advance Directives Date on File: 11/01/23 service: No Meds Allergies Allergy/AdvReac Type Severity Reaction Status Date / Time No Known Allergies Allergy Verified 10/31/23 18:11 Active Medications: Current Medications Acetaminophen (Acetaminophen 325 Mg Tablet) 650 mg PO Q6H PRN PRN Reason: Pain, Mild (Pain Scale 1-3) Last Admin: 11/04/23 03:40 Dose: 650 mg Acetaminophen/Butalbital/Caffeine (Butalb/Acetamin/Caff 50/325/40 Tablet) 1 tab PO Q4H PRN PRN Reason: Headache Al Hydroxide/Mg Hydroxide (Magnesium Hydrox/Alum Hydrox 30 Ml Oral.Susp) 30 ml PO Q4H PRN PRN Reason: Heartburn/Nausea Albuterol/Ipratropium (Albuterol/Iprat 2.5/0.5mg 3 Ml Ampul.Neb) 3 ml INHALE Q3H PRN PRN Reason: Sob Last Admin: 11/02/23 14:01 Dose: 3 ml Albuterol/Ipratropium (Albuterol/Iprat 2.5/0.5mg 3 Ml Ampul.Neb) 3 ml INHALE RQ4H WHILE AWAKE [facility] Last Admin: 11/04/23 15:28 Dose: 3 ml Amlodipine Besylate (Amlodipine Besylate 5 Mg Tablet) 5 mg PO DAILY [facility]; Protocol Last Admin: 11/04/23 08:11 Dose: 5 mg Atorvastatin Calcium (Atorvastatin Calcium 80 Mg Tablet) 80 mg PO BEDTIME [facility] Last Admin: 11/03/23 21:21 Dose: 80 mg Docusate Sodium (Docusate Sodium 100 Mg Capsule) 100 mg PO BID [facility] Last Admin: 11/04/23 08:11 Dose: 100 mg Enoxaparin Sodium (Enoxaparin Sodium 40 Mg/0.4 Ml Syringe) 40 mg SUBCUT DAILY [facility] Last Admin: 11/04/23 08:11 Dose: 40 mg Levofloxacin (Levaquin) 750 mg in 150 mls @ 100 mls/hr IV Q24H [facility] Last Infusion: 11/04/23 12:01 Dose: Infused Magnesium Oxide (Magnesium Oxide 400 Mg Tablet) 400 mg PO BEDTIME [facility] Last Admin: 11/03/23 21:21 Dose: 400 mg Melatonin (Melatonin 3 Mg Tablet) 6 mg PO BEDTIME PRN PRN Reason: Insomnia Last Admin: 11/03/23 21:21 Dose: 6 mg Morphine Sulfate (Morphine Sulfate 4 Mg/Ml Cartridge) 2 mg IVPUSH Q6H PRN; Protocol PRN Reason: Pain, Severe (Pain Scale 7-10) Last Admin: 11/01/23 04:38 Dose: 2 mg Ondansetron HCl (Ondansetron Hcl 4 Mg/2 Ml Vial) 4 mg IVPUSH Q8H PRN PRN Reason: Nausea and Vomiting Last Admin: 11/01/23 04:27 Dose: 4 mg Oxycodone HCl (Oxycodone Hcl Immed Release 5 Mg Tablet) 5 mg PO Q6H PRN PRN Reason: Pain, Moderate(Pain Scale 4-6) Last Admin: 11/01/23 01:11 Dose: 5 mg Oxycodone HCl (Oxycodone Hcl Immed Release 5 Mg Tablet) 5 mg PO ONCE PRN PRN Reason: Pain, Severe (Pain Scale 7-10) Sodium Chloride (0.9 % Sodium Chloride Flush 3 Ml Syringe) 3 ml IVFLUSH QSHIFT [facility] Last Admin: 11/04/23 08:11 Dose: 3 ml Tamsulosin HCl (Tamsulosin Hcl 0.4 Mg Capsule) 0.4 mg PO BEDTIME [facility] Last Admin: 11/03/23 21:21 Dose: 0.4 mg Vitamin D (Cholecalciferol (Vitamin D3) 25 Mcg Tablet) 50 mcg PO DAILY [facility] Last Admin: 11/04/23 08:11 Dose: 50 mcg Home Medications Medication Instructions Recorded Confirmed Last Taken Type amlodipine 5 mg tablet 5 mg PO DAILY 10/31/23 10/31/23 10/31/22 History atorvastatin 80 mg tablet 80 mg PO BEDTIME 10/31/23 10/31/23 10/30/22 History cholecalciferol (vitamin D3) 50 50 mcg PO DAILY 10/31/23 10/31/23 10/31/22 History mcg (2,000 unit) tablet coenzyme Q10 300 mg capsule (Co 300 mg PO DAILY 10/31/23 10/31/23 10/31/22 History Q-10) magnesium oxide 400 mg PO BEDTIME 10/31/23 10/31/23 10/30/22 History potassium citrate 5 mEq (540 mg) 5 meq PO TID 10/31/23 10/31/23 10/31/22 History tablet,extended release tamsulosin 0.4 mg capsule 0.4 mg PO BEDTIME 10/31/23 10/31/23 10/30/22 History Physical Exam Vital Signs: Vital Signs: Last Vital Signs Temp 99.1 F 11/04/23 15:25 Pulse 88 11/04/23 15:30 Resp 16 11/04/23 15:30 BP 123/71 11/04/23 15:25 Pulse Ox 93 11/04/23 15:25 O2 Del Method Room Air 11/04/23 15:25 O2 Flow Rate 2.5 11/04/23 07:42 Oxygen Flow Rate 2 11/03/23 15:00 BMI result Body Mass Index 27.4 Const: General: cooperative HEENT: Head: Yes normal to inspection Face and sinus: Yes normal facial exam Mouth: Normal oral and palatal mucosa present Teeth and gingiva: dentition normal Eyes: General: appearance normal, both eyes and all related structures Pupils: Equal, round and reactive pupils present Resp: Effort & Inspection: normal respiratory effort Cardio: Rate: regular rate Rhythm: regular rhythm GI: Palpation (GI): Soft to palpation and nontender : General: Yes no CVA tenderness Back/Spine/Pelvis: Back: no CVA tenderness Skin: General skin exam: no rashes or lesions noted Neuro: General: moves all extremities Cranial nerves: Yes Equal, round and reactive pupils present Extrem: General: Yes normal to inspection Psych: Appearance: grossly normal Results Labs 11/01/23 05:27 11/02/23 08:32 Microbiology Microbiology Results: Microbiology 11/01/23 17:37 Urine clean catch - Clean Catch Midstream Urine Culture - Final Enterococcus faecium 10/31/23 19:24 Blood - Venous Blood Culture - Preliminary No growth after 48 hours. 10/31/23 19:09 Blood - Venous Blood Culture - Preliminary No growth after 48 hours. 10/31/23 20:52 Urine clean catch - Urine sorto top Urine Culture - Final Assessment and Plan (1) Hypoxemia: Status: Acute (2) Sepsis: Qualifiers: Sepsis type: sepsis due to unspecified organism Sepsis acute organ dysfunction status: with acute organ dysfunction Severe sepsis acute organ dysfunction type: acute renal failure Acute renal failure type: unspecified Severe sepsis shock status: without septic shock Qualified Code(s): A41.9 - Sepsis, unspecified organism; R65.20 - Severe sepsis without septic shock; N17.9 - Acute kidney failure, unspecified Status: Acute (3) UTI (urinary tract infection): Qualifiers: Urinary tract infection type: acute cystitis Hematuria presence: without hematuria Qualified Code(s): N30.00 - Acute cystitis without hematuria Status: Acute He has been seen by Urology and right hydronephrosis addressed. He has enterococcus faecium Plan Would give po Levaquin for 14 days. Follow with Urology
== END 2023-11-04 16:27 | disposition home or self-care (01) | DRG 853 ==
LOC: HO.ED 22:23 → HO.EDOVER 23:55 → HO.S3 11-01 13:39 → HO.EDOVER 11-01 14:36 → HO.S3 11-01 14:46
PROVIDERS: Nurse Practitioner Family; Physician Assistant Medical; Urology; Admitting Provider Internal Medicine; Emergency Provider Internal Medicine; PCP Internal Medicine; Visit Provider Internal Medicine
PROC: 0TJB8ZZ Inspection of Bladder, Via Natural or Artificial Opening Endoscopic (ICD-10-PCS; CPT 52000; principal; 2023-11-01 14:10)
DX: A41.9 Sepsis, unspecified organism (principal); J96.01 Acute respiratory failure with hypoxia; N13.6 Pyonephrosis; N17.9 Acute kidney failure, unspecified; J98.11 Atelectasis; B95.2 Enterococcus as the cause of diseases classified elsewhere; R65.20 Severe sepsis without septic shock; I10 Essential (primary) hypertension; N32.89 Other specified disorders of bladder; N32.3 Diverticulum of bladder; E78.5 Hyperlipidemia, unspecified; Z20.822 Contact with and (suspected) exposure to COVID-19; Z87.442 Personal history of urinary calculi; Z79.899 Other long term (current) drug therapy
CPT/HCPCS: 0241U; 36415; 71045; 71046; 71275; 74177; 80048; 80053; 81001; 82550; 82803; 83605; 83735; 83880; 84484; 85025; 87040; 87070; 87086; 87088; 87186; 87205; 93005; 97162; 99285; C1758; C1769; C2617; J1100; J1650; J1940; J1956; J2250; J2270; J2405; J2543; J2704; J3010; Q9967

== ENCOUNTER → 2023-10-31 18:10 | Outpatient (BNV) | payer MEDICARE, BC, SELFPAY | PROVIDERS: Admitting Provider Internal Medicine; Emergency Provider Internal Medicine; PCP Internal Medicine; Visit Provider Internal Medicine Cardiovascular Disease | DX: R00.0 Tachycardia, unspecified (principal); R94.31 Abnormal electrocardiogram [ECG] [EKG] | CPT/HCPCS: 93010 ==

== ENCOUNTER → 2023-10-31 23:48 | Outpatient (BNV) | payer MEDICARE, BC, SELFPAY | PROVIDERS: Admitting Provider Internal Medicine; Emergency Provider Internal Medicine; PCP Internal Medicine; Visit Provider Urology | DX: N17.9 Acute kidney failure, unspecified (principal); N13.2 Hydronephrosis with renal and ureteral calculous obstruction | CPT/HCPCS: 52332; 74420; 99222 ==

== ENCOUNTER → 2023-10-31 23:48 | Outpatient (BNV) | payer MEDICARE, BC, SELFPAY | PROVIDERS: Admitting Provider Internal Medicine; Emergency Provider Internal Medicine; PCP Internal Medicine; Visit Provider Internal Medicine | DX: R09.02 Hypoxemia (principal); A41.9 Sepsis, unspecified organism; R65.20 Severe sepsis without septic shock; N17.9 Acute kidney failure, unspecified; N30.00 Acute cystitis without hematuria | CPT/HCPCS: 99222 ==

== ENCOUNTER → 2023-10-31 23:48 | Outpatient (BNV) | payer MEDICARE, BC, SELFPAY | PROVIDERS: Admitting Provider Internal Medicine; Emergency Provider Internal Medicine; PCP Internal Medicine; Visit Provider Internal Medicine | DX: J96.01 Acute respiratory failure with hypoxia (principal); A41.9 Sepsis, unspecified organism; R65.20 Severe sepsis without septic shock; N17.9 Acute kidney failure, unspecified | CPT/HCPCS: 99223; 99232; 99239 ==